=== PATIENT | male | born 1955 | race African-American/Black ===

== ENCOUNTER 2017-06-27 17:30 | Inpatient (IN) | payer OTHER ==
[~2017-06-27] VITALS: Ht 188 cm; Wt 97.0 kg
[2017-06-27 17:32] VITALS: Ht 188 cm; Wt 97.0 kg
[2017-06-27] MEDS ORDERED: ACETAMINOPHEN 325 MG TAB PO PRN (18:00)
[2017-06-27] MEDS ORDERED: ONDANSETRON 4 MG INJ IV PRN ×2 (18:00→20:00)
--- NOTE | 2017-06-27 18:00 | QN ---
Documentation Comment This is a 61-year-old male history of coronary disease status post stents who presents as a transfer from [place]. The patient was evaluated and treated and stabilized in the emergency room. They are being transferred to our emergency room because we do not have any telemetry beds and the patient is capitated. He has no chest pain currently. Hospitalist team is aware. Physical exam General: Well developed, well nourished, no acute distress Head: Normocephalic, atraumatic Eyes: Pupils equally reactive, EOM intact ENT: Moist mucous membranes Neck: Supple, no lymphadenopathy Respiratory: Lungs clear bilaterally, no distress Cardiovascular: RRR, no murmurs, rubs, or gallops Abdominal: Soft, non-tender, non-distended, no peritoneal signs : Deferred MSK: No edema, no unilateral swelling, 5/5 strength Neurologic: Alert and oriented, moving all extremities, normal speech, no focal weakness, no cerebellar signs Skin: No rash Psych: Normal mood EKG: I reviewed and interpreted a 12-lead EKG. Rhythm: Normal sinus rhythm Ectopy: None Intervals: No abnormalities ST segments: No elevations or depressions T waves: No contiguous inversions The patient remains chest pain-free. Further management per inpatient hospitalist team. The patient will be boarded in the emergency room until there is a telemetry bed. Bridge orders placed. Accepting care team and consultations: I discussed the current laboratory data, diagnostic imaging and emergency care provided. Admitting team: Dr. Alexander Admitting team indication: Insurance directed RAYNE LAM MD Jun 27, 2017 18:00
[2017-06-27 19:57] VITALS: BP 144/93; RESP 20
[2017-06-27] MEDS ORDERED: NACL 0.9% 3 ML SYG IV SCH (20:00)
[2017-06-27] MEDS ORDERED: NITROGLYCERIN (SL) 0.4 MG TAB SL PRN (20:00)
[2017-06-27] MEDS ORDERED: DOCUSATE SODIUM 100 MG CAP PO PRN (20:00)
[2017-06-27] MEDS ORDERED: BISACODYL (EC) 5 MG TAB PO PRN (20:00)
[2017-06-27] MEDS ORDERED: ASPI81TA3 PO (20:05)
[2017-06-27] MEDS ORDERED: CLOP75TA27 PO (20:05)
[2017-06-27 20:21] VITALS: PULSE 64
[2017-06-27] MEDS ORDERED: TRAM50TA2 PO (20:21)
[2017-06-27] MEDS ORDERED: DET1 PO (20:21)
[2017-06-27] MEDS ORDERED: ATOR10TA65 PO (20:21)
[2017-06-27] MEDS ORDERED: RANI75TA PO (20:21)
[2017-06-27] MEDS ORDERED: BENA5TAB2 PO (20:21)
[2017-06-27] MEDS ORDERED: METO-448 PO (20:21)
[2017-06-27] MEDS ORDERED: SERT20OR PO (20:21)
[2017-06-27] MEDS ORDERED: NAPR275T83 PO (20:21)
[2017-06-27 20:41] LABS: CREATINE KINASE 149 IU/L (23-200)
[2017-06-27] MEDS: FAMOTIDINE 20 MG TAB PO SCH (21:31)
[2017-06-27 22:53] LABS: CK-MB 1.25 ng/ml (0.0-2.4); TROPONIN-I < 0.012 ng/ml (0.00-0.12)
[2017-06-27 23:58] VITALS: BP 122/76; RESP 20
[2017-06-28] VITALS (11 sets, daily range): BP systolic 120–143; BP diastolic 81–89; PULSE 50–72; RESP 19–20
[2017-06-28 01:47] LABS: CREATINE KINASE 136 IU/L (23-200)
[2017-06-28 01:59] LABS: CK-MB 1.24 ng/ml (0.0-2.4); TROPONIN-I < 0.012 ng/ml (0.00-0.12)
--- NOTE | 2017-06-28 03:04 | HP ---
Date/Time of Note Date/Time of Note DATE: 06/28/17 TIME: 02:50 Assessment/Plan VTE Prophylaxis VTE Prophylaxis Intervention: SCD's Lines/Catheters Urinary Cath still in place: No Assessment/Plan Chief Complaint/Hosp Course This is a 61-year-old male being admitted to the telemetry floor for: #1 chest pain: Rule out ACS. Patient has cardiac risk factors as well as previous history of MA status post stent placement. At the current time he is chest pain-free. We will trend troponins. We will check a 2D echocardiogram. Will consult cardiology. Again as mentioned in the HPI patient was apparently going to be scheduled for a cardiac cath in the near future as he had some abnormal stress test in the recent past. Chest x-ray in a.m. #2 coronary artery disease: Patient is status post cardiac stents 2. Will continue aspirin Plavix statin and OLGA. Patient does not recall the dosage for all his medications put him on a low-dose beta-melony and OLGA and high intensity statin. Further medication recommendations as per cardiology. #3 hypertension: On OLGA, titrate up as indicated #4 hyperlipidemia: High-intensity statin #5 DVT and GI prophylaxis: SCDs, acid melony Further treatment strategy will be implemented as per the clinical course Problems: HPI/ROS Admit Date/Time Admit Date/Time Jun 27, 2017 at 17:44 Hx of Present Illness Chief complaint: Left-sided chest pain This is a 61-year-old male history of coronary disease status post stents who presents as a transfer from [place]. She reports that recently he was in an argument with somebody soon after the argument he started experiencing left- sided chest pressure along with shortness of breath and diaphoresis. He denies any radiation of this pain. He describes it as a pressure sensation over his chest. He states that he felt very similar to the pain that he experienced when he had a heart attack in 2015. Currently patient is chest pain-free by my examination. Of note patient does state that he follows with a education sales consultant as an outpatient and he was awaiting to be scheduled for a cardiac catheterization as he had some abnormal stress test within the last few weeks. Allergies: NKDA Indications: See JULIA RODRIGUEZ Const: As per HPI Eyes : No pain discharge or redness or change in visual acuity ENT: No pain, sore throat, congestion, congestion, dysphagia or discharge Respiratory: No shortness of breath, cough, sputum, wheezing, or pleuritic pain Cardiovascular: As per HPI GI : no change in appetite, abdominal pain, nausea, vomiting, diarrhea, constipation, or change in the color his stool Genitourinary: No dysuria, hematuria, flank pain , discharge or CVA tenderness Musculoskeletal: No joint pain, back pain, neck pain, restricted range of motion in neck or joints Skin: No rash, bruising or hives Neuro: No headache, dizziness, syncope, seizure, focal weakness Endocrine: No polyuria, polydipsia, temperature intolerance Psych: No hallucination, depression, anxiety or suicidal ideation PMH/Family/Social Past Medical History MA in 2015, hypertension, hyperlipidemia Past Surgical History Cardiac stents 2 Family History Significant Family History: diabetes (Dad) Social History Alcohol Use: none Smoking Status: Never smoker Drug Use: other (Previous history of cocaine use approximately 3 years ago.) Exam/Review of Systems Vital Signs Vitals Vital Signs Date Time Temp Pulse Resp B/P Pulse Ox O2 Delivery O2 Flow Rate FiO2 06/28/17 00:11 50 06/27/17 23:58 98.7 20 122/76 97 06/27/17 19:13 Room Air Exam Exam General: Patient lying in bed in no acute distress, prior to me entering the room patient was sound asleep. HEENT: Atraumatic, normocephalic. The pupils are equal, round and reactive. Extraocular motor are intact Neck: Supple with full range of motion. No rigidity or meningismus Chest: Nontender Lungs: Clear to auscultation bilaterally no crackles rales or wheezing Heart: Normal S1-S2, Regular rhythm and rate. No acute murmurs appreciate Abdomen: Soft , nontender, nondistended , bowel sounds are present. No guarding no rebound tenderness , No masses or organomegaly. No costovertebral temporal angle mass Extremities: Normal to inspection, no edema no cyanosis Neurologic: Normal mental status, speech normal, cranial nerves II through XII are intact, motor and sensory are intact, no focal weakness Additional Comments EKG: Rhythm: Normal sinus rhythm Ectopy: None Intervals: No abnormalities ST segments: No elevations or depressions T waves: No contiguous inversions As per ED physician documented Medications Medications Current Medications Clopidogrel Bisulfate (plaVIX) 75 mg DAILY PO ; Start 06/28/17 at 09:00 Aspirin (Aspirin) 81 mg DAILY PO ; Start 06/28/17 at 09:00 Ondansetron HCl (Zofran Inj) 4 mg Q6H PRN IV NAUSEA AND/OR VOMITING; Start at 20:00 Nitroglycerin (Nitroglycerin (Sl Tab) 0.4 Mg) 1 tab Q5M PRN SL CHEST PAIN; Start 06/27/17 at 20:00 Acetaminophen (Tylenol Tab) 650 mg Q6H PRN PO PAIN LEVEL 1-3 OR FEVER; Start at 20:00 Morphine Sulfate (morphine) 2 mg Q4H PRN IV PAIN LEVEL 7-10; Start 06/27/17 at 20:00 Docusate Sodium (Colace) 100 mg Q12H PRN PO CONSTIPATION; Start 06/27/17 at 20: 00 Bisacodyl (Dulcolax) 5 mg DAILY PRN PO CONSTIPATION; Start 06/27/17 at 20:00 Famotidine (Pepcid) 20 mg Q12 PO Last administered on 06/27/17t 21:31; Admin Dose 20 MG; Start 06/27/17 at 21:00 NARINDER LOOMIS Jun 28, 2017 03:00
[2017-06-28 08:01] LABS: BASOPHILS % 0.4 % (0.0-2.0); EOSINOPHILS # 0.1 10^3/ul (0.0-0.5); EOSINOPHILS % 1.1 % (0.0-7.0); HEMATOCRIT 43.7 % (42.0-52.0); HEMOGLOBIN 14.3 g/dl (14.0-18.0); LYMPHOCYTES # 1.4 10^3/ul (0.8-2.9); LYMPHOCYTES % 25.9 % (15.0-51.0); MEAN CORPUSCULAR HEMOGLOBIN 26.1 pg (29.0-33.0); MEAN CORPUSCULAR HGB CONC 32.7 g/dl (32.0-37.0); MEAN CORPUSCULAR VOLUME 79.7 fl (82.0-101.0); MEAN PLATELET VOLUME 10.3 fl (7.4-10.4); MONOCYTE # 0.5 10^3/ul (0.3-0.9); MONOCYTES % 9.2 % (0.0-11.0); NEUTROPHIL # 3.5 10^3/ul (1.6-7.5); PLATELET COUNT 195 10^3/UL (140-415); RED BLOOD COUNT 5.48 10^6/ul (4.70-6.10); RED CELL DISTRIBUTION WIDTH 13.9 % (11.5-14.5); WHITE BLOOD COUNT 5.5 10^3/ul (4.8-10.8)
[2017-06-28 08:25] LABS: ALBUMIN 3.9 g/dl (3.3-4.9); ALBUMIN/GLOBULIN RATIO 1.34; BILIRUBIN,INDIRECT 0.5 mg/dl (0-1.1); BILIRUBIN,TOTAL 0.5 mg/dl (0.2-1.3); CALCIUM 9.1 mg/dl (8.4-10.2); CHOL/HDL RATIO 3.1 RATIO; CREATININE 0.83 mg/dl (0.61-1.24); MAGNESIUM 1.9 mg/dl (1.7-2.5); TOTAL PROTEIN 6.8 g/dl (6.1-8.1)
[2017-06-28] MEDS: METOPROLOL 25 MG TAB PO SCH (08:50)
[2017-06-28] MEDS: CLOPIDOGREL 75 MG TAB PO SCH (08:53)
[2017-06-28] MEDS: BENAZEPRIL 10 MG TAB PO SCH (08:53)
[2017-06-28] MEDS: ATORVASTATIN 10 MG TAB PO SCH (08:54)
[2017-06-28] MEDS: ASPIRIN 81 MG TAB PO SCH (08:54)
[2017-06-28] MEDS: FAMOTIDINE 20 MG TAB PO SCH ×2 (08:54→20:15)
[2017-06-28] MEDS ORDERED: CLOPIDOGREL 75 MG TAB PO SCH (09:00)
[2017-06-28] MEDS ORDERED: ASPIRIN 81 MG TAB PO SCH (09:00)
[2017-06-28 15:15] LABS: THYROID STIMULATING HORMONE 1.54 MIU/L (0.465-4.680)
--- NOTE | 2017-06-28 15:24 | CONS ---
Date/Time of Note Date/Time of Note DATE: 06/28/17 TIME: 15:20 Assessment/Plan Assessment/Plan Additional Assessment/Plan #1 chest pain: Rule out ACS - pt with report of + stress test in DR. Landrum 's office - plan for [facility] with Dr. Padilla, possibly tomorrow. ay in a.m. #2 coronary artery disease: Patient is status post cardiac stents 2. Will continue aspirin Plavix statin and OLGA. LHC planned. #3 hypertension: On OLGA, titrate up as indicated #4 hyperlipidemia: High-intensity statin #5 DVT and GI prophylaxis: SCDs, acid melony Consultation Date/Type/Reason Admit Date/Time Jun 27, 2017 at 17:44 Initial Consult Date 24 HR Interval Summary Free Text/Dictation pt with report of + stress test in DR. Landrum's office - plan for [facility] with Dr. Padilla, possibly tomorrow. ay in a.m. ROS: No fever, no chills, no nausea, no vomiting, no diarrhea/constipation No recent weight changes No chest pain, no PND, no orthopnea No dizziness, blurred vision No thirst, no heat or cold intolerance Exam/Review of Systems Vital Signs Vitals Vital Signs Date Time Temp Pulse Resp B/P Pulse Ox O2 Delivery O2 Flow Rate FiO2 06/28/17 12:10 61 06/28/17 11:47 98.3 19 143/82 98 06/27/17 19:13 Room Air Intake and Output 06/27/17 06/27/17 06/28/17 15:00 23:00 07:00 Intake Total 300 ml Output Total 200 ml Balance 100 ml Exam General: WN/WD/NAD, AOx 3 HEENT: Unicetric/atraumatic/EOMI (follow commands) NECK: JVD elevated, no thyromegaly Lymph: no lymphadenopathy HEART: regular with no S3, II/ systolic murmur at apex LUNGS: Coarse sounds ABD: soft, NT, ND, +BS : Intact Neuro: non focal SKIN: chronic changes EXT: trace edema Results Result Diagram: 06/28/17 0701 06/28/17 0702 Results 24 hrs Laboratory Tests Test 06/27/17 20:00 06/28/17 01:08 06/28/17 07:01 06/28/17 07:02 Creatine Kinase 149 136 Creatine Kinase Index 0.8 0.9 Creatinine Kinase MB (Mass) 1.25 1.24 Troponin I < 0.012 < 0.012 White Blood Count 5.5 Red Blood Count 5.48 Hemoglobin 14.3 Hematocrit 43.7 Mean Corpuscular Volume 79.7 L Mean Corpuscular Hemoglobin 26.1 L Mean Corpuscular Hemoglobin Concent 32.7 Red Cell Distribution Width 13.9 Platelet Count 195 Mean Platelet Volume 10.3 Neutrophils % 63.0 Lymphocytes % 25.9 Monocytes % 9.2 Eosinophils % 1.1 Basophils % 0.4 Nucleated Red Blood Cells % 0.0 Neutrophils # 3.5 Lymphocytes # 1.4 Monocytes # 0.5 Eosinophils # 0.1 Basophils # 0.0 Nucleated Red Blood Cells # 0.0 Hemoglobin A1c 5.9 Sodium Level 139 Potassium Level 4.0 Chloride Level 106 Carbon Dioxide Level 26 Anion Gap 11 Blood Urea Nitrogen 11 Creatinine 0.83 Glucose Level 86 Calcium Level 9.1 Magnesium Level 1.9 Total Bilirubin 0.5 Direct Bilirubin 0.00 Indirect Bilirubin 0.5 Aspartate Amino Transf (AST/SGOT) 23 Alanine Aminotransferase (ALT/SGPT) 34 Alkaline Phosphatase 78 Total Protein 6.8 Albumin 3.9 Globulin 2.90 Albumin/Globulin Ratio 1.34 Triglycerides Level 63 Cholesterol Level 92 L LDL Cholesterol, Calculated 50 HDL Cholesterol 29 L Cholesterol/HDL Ratio 3.1 Thyroid Stimulating Hormone (TSH) 1.540 Medications Medications Current Medications Clopidogrel Bisulfate (plaVIX) 75 mg DAILY PO Last administered on 06/28/17 08 :53; Admin Dose 75 MG; Start 06/28/17 at 09:00 Aspirin (Aspirin) 81 mg DAILY PO Last administered on 06/28/17 08:54; Admin Dose 81 MG; Start 06/28/17 at 09:00 Ondansetron HCl (Zofran Inj) 4 mg Q6H PRN IV NAUSEA AND/OR VOMITING; Start at 20:00 Nitroglycerin (Nitroglycerin (Sl Tab) 0.4 Mg) 1 tab Q5M PRN SL CHEST PAIN; Start 06/27/17 at 20:00 Acetaminophen (Tylenol Tab) 650 mg Q6H PRN PO PAIN LEVEL 1-3 OR FEVER; Start at 20:00 Morphine Sulfate (morphine) 2 mg Q4H PRN IV PAIN LEVEL 7-10; Start 06/27/17 at 20:00 Docusate Sodium (Colace) 100 mg Q12H PRN PO CONSTIPATION; Start 06/27/17 at 20: 00 Bisacodyl (Dulcolax) 5 mg DAILY PRN PO CONSTIPATION; Start 06/27/17 at 20:00 Famotidine (Pepcid) 20 mg Q12 PO Last administered on 06/28/17 08:54; Admin Dose 20 MG; Start 06/27/17 at 21:00 Atorvastatin Calcium (Lipitor) 80 mg DAILY PO Last administered on 06/28/17 08 :54; Admin Dose 80 MG; Start 06/28/17 at 09:00 Benazepril HCl (Lotensin) 10 mg DAILY PO Last administered on 06/28/17 08:53; Admin Dose 10 MG; Start 06/28/17 at 09:00 Metoprolol Tartrate (Lopressor) 25 mg DAILY PO ; Start 06/28/17 at 09:00 TAMAR GUZMÁN MD Jun 28, 2017 15:24
--- NOTE | 2017-06-28 15:43 | RADRPT ---
Echocardiogram Report Patient Name: SANDY ECHAVARRIA Gender: Male Date: 1955 Study Date: 28-Jun-2017 Busperson: [place] Location: I Ref. Physician: NARINDER LOOMIS Quality: Good Procedures: Transthoracic echocardiogram with complete 2D, M-Mode, and doppler examination. Indications: Evaluate Left Ventricular function. 2D/M Mode Doppler Measurement Value Normal Ranges Measurement Value Normal Ranges LVIDd 2D 3.1 3.5 - 5.6 cm AV Peak [place] 1.2 m/sec LVIDs 2D 2.1 2.1 - 4.1 cm AV Peak PG 5.5 mmHg LVPWd 2D 1.3 0.6 - 1.1 cm LVOT Peak [place] 1.2 m/sec IVSd 2D 1.3 0.6 - 1.1 cm LVOT Peak PG 5.4 mmHg AoR Diam 2D 3.8 2.0 - 3.7 cm MV E Peak [place] 0.8 m/sec EDV 2D 38.0 cm3 MV A Peak [place] 0.9 m/sec ESV 2D 9.0 cm3 MV E/A 0.9 LA Dimen 2D 3.4 2.3 - 4.0 cm MV Decel Time 253 msec MV Decel [place] 3 MV E/A 0.9 TR Peak [place] 2.4 m/sec TR Peak PG 22.4 mmHg RVSP 25.4 mmHg Findings Left Ventricle: Mild concentric left ventricular hypertrophy. Ejection fraction is visually estimated at 50 %. Tissue Doppler/Mitral Doppler indices are consistent with impaired relaxation (Stage I diastolic dysfunction). Right Ventricle: Normal right ventricular size. Normal right ventricular systolic function. Left Atrium: The left atrium is normal in size. Right Atrium: The right atrium is normal in size. Mitral Valve: Normal appearance and function of the mitral valve with trace physiologic regurgitation. Aortic Valve: Normal appearance of the aortic valve. No significant aortic stenosis or insufficiency. Tricuspid Valve: Normal appearance and function of the tricuspid valve with trace physiologic regurgitation. Normal right ventricular systolic pressure. Pulmonic Valve: Normal pulmonic valve appearance. Pericardium: Normal pericardium with no significant pericardial effusion. Aorta: Normal aortic root. IVC: Normal size and normal respiratory collapse consistent with normal right atrial pressure. Pulmonary Artery: Not well visualized. Conclusions 1.Mild concentric left ventricular hypertrophy. Ejection fraction is visually estimated at 50 %. Tissue Doppler/Mitral Doppler indices are consistent with impaired relaxation (Stage I diastolic dysfunction). 2.Normal appearance and function of the mitral valve with trace physiologic regurgitation. 3.Normal appearance and function of the tricuspid valve with trace physiologic regurgitation. Normal right ventricular systolic pressure. Electronically Signed By: Bryce Estevez 28-Jun-2017 15:42:32 -0700 Patient Name: SANDY ECHAVARRIA Study Date: 28-Jun-2017 [id number]
--- NOTE | 2017-06-28 16:13 | PN ---
Date/Time of Note Date/Time of Note DATE: 06/28/17 TIME: 16:11 Assessment/Plan VTE Prophylaxis VTE Prophylaxis Intervention: SCD's Lines/Catheters Urinary Cath still in place: No Assessment/Plan Chief Complaint/Hosp Course Assessment and plan 1. Chest pain. So troponins negative. Per echocardiogram patient noted with EF of 50% with stage I diastolic dysfunction. Considering patient's history tentative plan for left heart cath per support services specialist. 3. History of CAD. Continue on aspirin and statin as well as OLGA inhibitor and beta-melony. Continue telemetry monitoring. 3. History of hypertension. Continue antihypertensives and adjust needed 4. Dyslipidemia. Continue on statin medication Disposition and plan: Tentative plan for left heart cath. Will follow up with support services specialist. Continue in-house monitoring. Discussed plan of care with Dr. Hollingsworth Problems: Subjective 24 Hr Interval Summary Free Text/Dictation Patient denies any chest pain at this time. No reports of shortness of breath either. Exam/Review of Systems Vital Signs Vitals Vital Signs Date Time Temp Pulse Resp B/P Pulse Ox O2 Delivery O2 Flow Rate FiO2 06/28/17 15:39 98.3 65 19 123/81 99 06/27/17 19:13 Room Air Intake and Output 06/27/17 06/27/17 06/28/17 14:59 22:59 06:59 Intake Total 300 ml Output Total 200 ml Balance 100 ml Exam Constitutional: alert, oriented Psych: nl mood/affect Head: normocephalic Eyes: nl conjunctiva Neck: supple, No jvd Respiratory: normal air movement Cardiovascular: other (Rate controlled at this time) Gastrointestinal: non-tender, soft Musculoskeletal: nl extremities to inspection Neurological: AIR VICE MARSHAL II-XII intact, nl mental status, nl speech Skin: nl turgor Results Result Diagram: 06/28/17 0701 06/28/17 0702 Results 24 hrs Laboratory Tests Test 06/27/17 20:00 06/28/17 01:08 06/28/17 07:01 06/28/17 07:02 Creatine Kinase 149 136 Creatine Kinase Index 0.8 0.9 Creatinine Kinase MB (Mass) 1.25 1.24 Troponin I < 0.012 < 0.012 White Blood Count 5.5 Red Blood Count 5.48 Hemoglobin 14.3 Hematocrit 43.7 Mean Corpuscular Volume 79.7 L Mean Corpuscular Hemoglobin 26.1 L Mean Corpuscular Hemoglobin Concent 32.7 Red Cell Distribution Width 13.9 Platelet Count 195 Mean Platelet Volume 10.3 Neutrophils % 63.0 Lymphocytes % 25.9 Monocytes % 9.2 Eosinophils % 1.1 Basophils % 0.4 Nucleated Red Blood Cells % 0.0 Neutrophils # 3.5 Lymphocytes # 1.4 Monocytes # 0.5 Eosinophils # 0.1 Basophils # 0.0 Nucleated Red Blood Cells # 0.0 Hemoglobin A1c 5.9 Sodium Level 139 Potassium Level 4.0 Chloride Level 106 Carbon Dioxide Level 26 Anion Gap 11 Blood Urea Nitrogen 11 Creatinine 0.83 Glucose Level 86 Calcium Level 9.1 Magnesium Level 1.9 Total Bilirubin 0.5 Direct Bilirubin 0.00 Indirect Bilirubin 0.5 Aspartate Amino Transf (AST/SGOT) 23 Alanine Aminotransferase (ALT/SGPT) 34 Alkaline Phosphatase 78 Total Protein 6.8 Albumin 3.9 Globulin 2.90 Albumin/Globulin Ratio 1.34 Triglycerides Level 63 Cholesterol Level 92 L LDL Cholesterol, Calculated 50 HDL Cholesterol 29 L Cholesterol/HDL Ratio 3.1 Thyroid Stimulating Hormone (TSH) 1.540 Medications Medications Current Medications Clopidogrel Bisulfate (plaVIX) 75 mg DAILY PO Last administered on 06/28/17 08 :53; Admin Dose 75 MG; Start 06/28/17 at 09:00 Aspirin (Aspirin) 81 mg DAILY PO Last administered on 06/28/17 08:54; Admin Dose 81 MG; Start 06/28/17 at 09:00 Ondansetron HCl (Zofran Inj) 4 mg Q6H PRN IV NAUSEA AND/OR VOMITING; Start at 20:00 Nitroglycerin (Nitroglycerin (Sl Tab) 0.4 Mg) 1 tab Q5M PRN SL CHEST PAIN; Start 06/27/17 at 20:00 Acetaminophen (Tylenol Tab) 650 mg Q6H PRN PO PAIN LEVEL 1-3 OR FEVER; Start at 20:00 Morphine Sulfate (morphine) 2 mg Q4H PRN IV PAIN LEVEL 7-10; Start 06/27/17 at 20:00 Docusate Sodium (Colace) 100 mg Q12H PRN PO CONSTIPATION; Start 06/27/17 at 20: 00 Bisacodyl (Dulcolax) 5 mg DAILY PRN PO CONSTIPATION; Start 06/27/17 at 20:00 Famotidine (Pepcid) 20 mg Q12 PO Last administered on 06/28/17 08:54; Admin Dose 20 MG; Start 06/27/17 at 21:00 Atorvastatin Calcium (Lipitor) 80 mg DAILY PO Last administered on 06/28/17 08 :54; Admin Dose 80 MG; Start 06/28/17 at 09:00 Benazepril HCl (Lotensin) 10 mg DAILY PO Last administered on 06/28/17 08:53; Admin Dose 10 MG; Start 06/28/17 at 09:00 Metoprolol Tartrate (Lopressor) 25 mg DAILY PO ; Start 06/28/17 at 09:00 ARACELI ODOM Jun 28, 2017 16:13
[2017-06-28] MEDS: morphine 2 MG INJ IV PRN (18:33)
[2017-06-28] MEDS: ISOSORBIDE DINITRATE 5 MG TAB PO SCH (20:15)
[2017-06-28] MEDS: ACETAMINOPHEN 325 MG TAB PO PRN (21:28)
[2017-06-29] VITALS (20 sets, daily range): BP systolic 111–163; BP diastolic 58–98; PULSE 62–96; RESP 14–24
--- NOTE | 2017-06-29 05:12 | CONS ---
DATE OF ADMISSION: 06/27/2017 DATE OF CONSULTATION: 06/28/2017 REFERRING PHYSICIAN: Bryce Estevez MD. INTERVENTION: Cardiology consultation. REASON FOR CONSULT: Abnormal chest pain. Need for angiogram. CHIEF COMPLAINT: Chest pain. HISTORY OF PRESENT ILLNESS: This is a 59-year-old gentleman who presented to the emergency room complaining of chest pain. The patient said that he was in an argument, started having chest pain, left-sided pressure, severe. The patient was seen initially at [facility] and was transferred to [facility]. The patient has a history of coronary artery disease, acute IA and PCI done in 2014 at [facility] by . He has had 2 stents. He was also followed by Dr. Kiko Landrum, his geometry professor. According to the patient, the patient has had a stress test done as an outpatient that showed no abnormalities seen, and he was supposed to get angiogram done. However, he has not been able to arranged this. Currently, the patient had chest pain as previously mentioned. PAST MEDICAL HISTORY: Coronary artery disease status post STEMI in 2015, hypertension, dyslipidemia. SOCIAL HISTORY: The patient has apparently used cocaine and alcohol in the past. FAMILY HISTORY: None reported. ALLERGIES: NONE REPORTED. MEDICATIONS: See medical reconciliation and reviewed. REVIEW OF SYSTEMS: As above mentioned. PHYSICAL EXAMINATION: VITAL SIGNS: Temperature 98, heart rate 72, blood pressure 120/81, respiratory rate 19, sating 99%. HEENT: Normocephalic and atraumatic. Pupils were equal. CARDIOVASCULAR: Regular rate and rhythm. S1, S2. PULMONARY: No wheezes. GI: Soft and nontender. EXTREMITIES: No edema. NEURO: Awake and alert. PSYCH: Calm and pleasant. DIAGNOSTICS: EKG done and showed normal S1, S2. No evidence of ischemia. EKG done in June showed normal sinus rhythm. No evidence of ischemia. ASSESSMENT: 1. Chest pain, unremarkable. 2. Coronary artery disease. Abnormal stress test per patient's report. This was done in Dr. Landrum's office. 3. Dyslipidemia. RECOMMENDATIONS: The patient's labs were reviewed. His echo was also read by Dr. Estevez shows ejection fraction about 50%. He has already on medical regimen, including aspirin and Plavix, beta melony. Nothing was added. Given his abnormal stress test and past history of coronary artery disease and the current chest pain, he was going to have a left heart catheterization and angioplasty with coronary intervention. This plan was discussed with the patient. The patient has given consent to the procedure. I scheduled the patient for the procedure tomorrow. Dictated By: Hao Navarrete MD /[place]/desiree /Document#: [id number] CC: Joyce Aleman MD; Bryce Estevez MD;*[facility]*
--- NOTE | 2017-06-29 05:20 | RADRPT ---
PROCEDURE: XR Chest. CLINICAL INDICATION: Chest pain TECHNIQUE: An AP view of the chest was obtained. COMPARISON: None. FINDINGS: There is prominence of the interstitial markings with small left pleural effusion. No focal airsp petar opacification or pneumothorax is seen. The cardiomediastinal silhouette is mildly enlarged . C alcifications are seen within the aortic arch. The osseous structures demonstrate senescent changes . There are multiple healed right posterior rib fractures. IMPRESSION: 1. Mild prominence of the interstitial markings, may reflect mild underlying interstitial edema or chronic lung changes. 2. Small left pleural effusion. 3. Mild cardiomegaly and aortic atherosclerosis. RPTAT: HH .Liliane James MD, MD Date Time Electronically viewed and signed by .Liliane James MD, on 06/29/2017 05:20 .G/
[2017-06-29 08:04] LABS: BASOPHILS % 0.5 % (0.0-2.0); EOSINOPHILS # 0.1 10^3/ul (0.0-0.5); EOSINOPHILS % 1.3 % (0.0-7.0); HEMATOCRIT 45.5 % (42.0-52.0); HEMOGLOBIN 14.9 g/dl (14.0-18.0); LYMPHOCYTES # 1.6 10^3/ul (0.8-2.9); LYMPHOCYTES % 28.6 % (15.0-51.0); MEAN CORPUSCULAR HEMOGLOBIN 26.2 pg (29.0-33.0); MEAN CORPUSCULAR HGB CONC 32.7 g/dl (32.0-37.0); MEAN CORPUSCULAR VOLUME 80.1 fl (82.0-101.0); MEAN PLATELET VOLUME 10.1 fl (7.4-10.4); MONOCYTE # 0.5 10^3/ul (0.3-0.9); MONOCYTES % 8.3 % (0.0-11.0); NEUTROPHILS % 61.1 % (39.0-77.0); PLATELET COUNT 209 10^3/UL (140-415); RED BLOOD COUNT 5.68 10^6/ul (4.70-6.10); RED CELL DISTRIBUTION WIDTH 13.7 % (11.5-14.5); WHITE BLOOD COUNT 5.6 10^3/ul (4.8-10.8)
[2017-06-29 08:27] LABS: INR 1.06; PROTIME 13.8 Sec (12.2-14.2); PT RATIO 1.1
[2017-06-29 08:28] LABS: CREATINE KINASE 101 IU/L (23-200)
[2017-06-29 08:41] LABS: ALBUMIN 3.8 g/dl (3.3-4.9); ALBUMIN/GLOBULIN RATIO 1.31; BILIRUBIN,INDIRECT 0.3 mg/dl (0-1.1); BILIRUBIN,TOTAL 0.3 mg/dl (0.2-1.3); CALCIUM 9.5 mg/dl (8.4-10.2); CK-MB 0.87 ng/ml (0.0-2.4); CREATININE 0.81 mg/dl (0.61-1.24); POTASSIUM 4.5 mmol/L (3.5-5.1); TOTAL PROTEIN 6.7 g/dl (6.1-8.1); TROPONIN-I < 0.012 ng/ml (0.00-0.12)
[2017-06-29] MEDS: FAMOTIDINE 20 MG TAB PO SCH ×2 (08:43→21:00)
[2017-06-29] MEDS: ATORVASTATIN 10 MG TAB PO SCH (08:43)
[2017-06-29] MEDS: BENAZEPRIL 10 MG TAB PO SCH (08:43)
[2017-06-29] MEDS: ISOSORBIDE DINITRATE 5 MG TAB PO SCH ×3 (08:43→17:00)
[2017-06-29] MEDS: METOPROLOL 25 MG TAB PO SCH (08:43)
[2017-06-29] MEDS: ASPIRIN 81 MG TAB PO SCH (08:45)
[2017-06-29] MEDS: CLOPIDOGREL 75 MG TAB PO SCH (08:45)
--- NOTE | 2017-06-29 10:30 | CONS ---
Date/Time of Note Date/Time of Note DATE: 06/29/17 TIME: 10:29 Assessment/Plan Assessment/Plan Additional Assessment/Plan #1 chest pain: Rule out ACS - pt with report of + stress test in DR. Landrum 's office - plan for [facility] with Dr. Padilla - pt agrees - than you for Dr. Padilla' s assistance. #2 coronary artery disease: Patient is status post cardiac stents 2. Will continue aspirin Plavix statin and OLGA. C planned. NO CP now. #3 hypertension: On OLGA, titrate up as indicated #4 hyperlipidemia: High-intensity statin #5 DVT and GI prophylaxis: SCDs, acid melony Consultation Date/Type/Reason Admit Date/Time Jun 27, 2017 at 17:44 24 HR Interval Summary Free Text/Dictation [facility] planned today. ROS: No fever, no chills, no nausea, no vomiting, no diarrhea/constipation No recent weight changes No chest pain, no PND, no orthopnea No dizziness, blurred vision No thirst, no heat or cold intolerance Exam/Review of Systems Vital Signs Vitals Vital Signs Date Time Temp Pulse Resp B/P Pulse Ox O2 Delivery O2 Flow Rate FiO2 06/29/17 08:17 62 06/29/17 08:08 97.9 18 121/80 98 06/27/17 19:13 Room Air Intake and Output 06/28/17 06/28/17 06/29/17 15:00 23:00 07:00 Intake Total 800 ml 500 ml Output Total 1050 ml Balance 800 ml -550 ml Exam General: WN/WD/NAD, AOx 3 HEENT: Unicetric/atraumatic/EOMI (follows commands) NECK: JVD elevated, no thyromegaly Lymph: no lymphadenopathy HEART: regular with no S3, II/ systolic murmur at apex LUNGS: Coarse sounds ABD: soft, NT, ND, +BS : Intact Neuro: non focal SKIN: chronic changes EXT: trace edema Results Result Diagram: 06/29/17 0647 06/29/17 0647 Results 24 hrs Laboratory Tests Test 06/29/17 06:47 White Blood Count 5.6 Red Blood Count 5.68 Hemoglobin 14.9 Hematocrit 45.5 Mean Corpuscular Volume 80.1 L Mean Corpuscular Hemoglobin 26.2 L Mean Corpuscular Hemoglobin Concent 32.7 Red Cell Distribution Width 13.7 Platelet Count 209 Mean Platelet Volume 10.1 Neutrophils % 61.1 Lymphocytes % 28.6 Monocytes % 8.3 Eosinophils % 1.3 Basophils % 0.5 Nucleated Red Blood Cells % 0.0 Neutrophils # (Manual) 3.4 Lymphocytes # 1.6 Monocytes # 0.5 Eosinophils # 0.1 Basophils # 0.0 Nucleated Red Blood Cells # 0.0 Prothrombin Time 13.8 Prothrombin Time Ratio 1.1 INR International Normalized Ratio 1.06 Sodium Level 143 Potassium Level 4.5 Chloride Level 104 Carbon Dioxide Level 25 Anion Gap 19 #H Blood Urea Nitrogen 14 Creatinine 0.81 Glucose Level 87 Calcium Level 9.5 Magnesium Level 2.0 Total Bilirubin 0.3 Direct Bilirubin 0.00 Indirect Bilirubin 0.3 Aspartate Amino Transf (AST/SGOT) 22 Alanine Aminotransferase (ALT/SGPT) 30 Alkaline Phosphatase 77 Creatine Kinase 101 Creatine Kinase Index 0.9 Creatinine Kinase MB (Mass) 0.87 Troponin I < 0.012 Total Protein 6.7 Albumin 3.8 Globulin 2.90 Albumin/Globulin Ratio 1.31 Medications Medications Current Medications Clopidogrel Bisulfate (plaVIX) 75 mg DAILY PO Last administered on 06/29/17 08 :45; Admin Dose 75 MG; Start 06/28/17 at 09:00 Aspirin (Aspirin) 81 mg DAILY PO Last administered on 06/29/17 08:45; Admin Dose 81 MG; Start 06/28/17 at 09:00 Ondansetron HCl (Zofran Inj) 4 mg Q6H PRN IV NAUSEA AND/OR VOMITING; Start at 20:00 Nitroglycerin (Nitroglycerin (Sl Tab) 0.4 Mg) 1 tab Q5M PRN SL CHEST PAIN; Start 06/27/17 at 20:00 Acetaminophen (Tylenol Tab) 650 mg Q6H PRN PO PAIN LEVEL 1-3 OR FEVER Last administered on 06/28/17 21:28; Admin Dose 650 MG; Start 06/27/17 at 20:00 Morphine Sulfate (morphine) 2 mg Q4H PRN IV PAIN LEVEL 7-10 Last administered on 06/28/17 18:33; Admin Dose 2 MG; Start 06/27/17 at 20:00 Docusate Sodium (Colace) 100 mg Q12H PRN PO CONSTIPATION; Start 06/27/17 at 20: 00 Bisacodyl (Dulcolax) 5 mg DAILY PRN PO CONSTIPATION; Start 06/27/17 at 20:00 Famotidine (Pepcid) 20 mg Q12 PO Last administered on 06/28/17 20:15; Admin Dose 20 MG; Start 06/27/17 at 21:00 Atorvastatin Calcium (Lipitor) 80 mg DAILY PO Last administered on 06/28/17 08 :54; Admin Dose 80 MG; Start 06/28/17 at 09:00 Benazepril HCl (Lotensin) 10 mg DAILY PO Last administered on 06/28/17 08:53; Admin Dose 10 MG; Start 06/28/17 at 09:00 Metoprolol Tartrate (Lopressor) 25 mg DAILY PO ; Start 06/28/17 at 09:00 Isosorbide Dinitrate (Isordil) 5 mg TID@,, PO Last administered on 20:15; Admin Dose 5 MG; Start 06/28/17 at 17:00 TAMAR GUZMÁN MD Jun 29, 2017 10:30
--- NOTE | 2017-06-29 10:40 | PN ---
Date/Time of Note Date/Time of Note DATE: 06/29/17 TIME: 10:38 Assessment/Plan VTE Prophylaxis VTE Prophylaxis Intervention: ambulation Lines/Catheters [facility] [place] [facility] Urinary Cath still in place: No Assessment/Plan Chief Complaint/Hosp Course Assessment and plan 1. Chest pain. troponins negative. Per echocardiogram patient noted with EF of 50% with stage I diastolic dysfunction. Considering patient's history tentative plan for left heart cath per manager demand. 06/29/17 3. History of CAD. Continue on aspirin and statin as well as OLGA inhibitor and beta-melony. Continue telemetry monitoring. 3. History of hypertension. Continue antihypertensives and adjust needed 4. Dyslipidemia. Continue on statin medication Disposition and plan: Tentative plan for left heart cath today. f/u with results. continue supportive care Discussed plan of care with Dr. Hollingsworth Problems: Subjective 24 Hr Interval Summary Free Text/Dictation no s/s of distress. comfortable at this time. no reports of chest pain Exam/Review of Systems Vital Signs Vitals Vital Signs Date Time Temp Pulse Resp B/P Pulse Ox O2 Delivery O2 Flow Rate FiO2 06/29/17 08:17 62 06/29/17 08:08 97.9 18 121/80 98 06/27/17 19:13 Room Air Intake and Output 06/28/17 06/28/17 06/29/17 15:00 23:00 07:00 Intake Total 800 ml 500 ml Output Total 1050 ml Balance 800 ml -550 ml Exam Constitutional: alert, oriented Psych: nl mood/affect Head: normocephalic Neck: No jvd Respiratory: clear to auscultation Cardiovascular: other (regular rate ) Gastrointestinal: non-tender, soft Musculoskeletal: nl extremities to inspection, nl gait and stance Extremities: normal pulses Neurological: WELDING SPECIALIST II-XII intact, nl mental status, nl speech Skin: No rash or lesions Results Result Diagram: 06/29/17 0647 06/29/17 0647 Results 24 hrs Laboratory Tests Test 06/29/17 06:47 White Blood Count 5.6 Red Blood Count 5.68 Hemoglobin 14.9 Hematocrit 45.5 Mean Corpuscular Volume 80.1 L Mean Corpuscular Hemoglobin 26.2 L Mean Corpuscular Hemoglobin Concent 32.7 Red Cell Distribution Width 13.7 Platelet Count 209 Mean Platelet Volume 10.1 Neutrophils % 61.1 Lymphocytes % 28.6 Monocytes % 8.3 Eosinophils % 1.3 Basophils % 0.5 Nucleated Red Blood Cells % 0.0 Neutrophils # (Manual) 3.4 Lymphocytes # 1.6 Monocytes # 0.5 Eosinophils # 0.1 Basophils # 0.0 Nucleated Red Blood Cells # 0.0 Prothrombin Time 13.8 Prothrombin Time Ratio 1.1 INR International Normalized Ratio 1.06 Sodium Level 143 Potassium Level 4.5 Chloride Level 104 Carbon Dioxide Level 25 Anion Gap 19 #H Blood Urea Nitrogen 14 Creatinine 0.81 Glucose Level 87 Calcium Level 9.5 Magnesium Level 2.0 Total Bilirubin 0.3 Direct Bilirubin 0.00 Indirect Bilirubin 0.3 Aspartate Amino Transf (AST/SGOT) 22 Alanine Aminotransferase (ALT/SGPT) 30 Alkaline Phosphatase 77 Creatine Kinase 101 Creatine Kinase Index 0.9 Creatinine Kinase MB (Mass) 0.87 Troponin I < 0.012 Total Protein 6.7 Albumin 3.8 Globulin 2.90 Albumin/Globulin Ratio 1.31 Medications Medications Current Medications Clopidogrel Bisulfate (plaVIX) 75 mg DAILY PO Last administered on 06/29/17 08 :45; Admin Dose 75 MG; Start 06/28/17 at 09:00 Aspirin (Aspirin) 81 mg DAILY PO Last administered on 06/29/17 08:45; Admin Dose 81 MG; Start 06/28/17 at 09:00 Ondansetron HCl (Zofran Inj) 4 mg Q6H PRN IV NAUSEA AND/OR VOMITING; Start at 20:00 Nitroglycerin (Nitroglycerin (Sl Tab) 0.4 Mg) 1 tab Q5M PRN SL CHEST PAIN; Start 06/27/17 at 20:00 Acetaminophen (Tylenol Tab) 650 mg Q6H PRN PO PAIN LEVEL 1-3 OR FEVER Last administered on 06/28/17 21:28; Admin Dose 650 MG; Start 06/27/17 at 20:00 Morphine Sulfate (morphine) 2 mg Q4H PRN IV PAIN LEVEL 7-10 Last administered on 06/28/17 18:33; Admin Dose 2 MG; Start 06/27/17 at 20:00 Docusate Sodium (Colace) 100 mg Q12H PRN PO CONSTIPATION; Start 06/27/17 at 20: 00 Bisacodyl (Dulcolax) 5 mg DAILY PRN PO CONSTIPATION; Start 06/27/17 at 20:00 Famotidine (Pepcid) 20 mg Q12 PO Last administered on 06/28/17 20:15; Admin Dose 20 MG; Start 06/27/17 at 21:00 Atorvastatin Calcium (Lipitor) 80 mg DAILY PO Last administered on 06/28/17 08 :54; Admin Dose 80 MG; Start 06/28/17 at 09:00 Benazepril HCl (Lotensin) 10 mg DAILY PO Last administered on 06/28/17 08:53; Admin Dose 10 MG; Start 06/28/17 at 09:00 Metoprolol Tartrate (Lopressor) 25 mg DAILY PO ; Start 06/28/17 at 09:00 Isosorbide Dinitrate (Isordil) 5 mg TID@ PO Last administered on 20:15; Admin Dose 5 MG; Start 06/28/17 at 17:00 ARACELI ODOM Jun 29, 2017 10:40
[2017-06-29] MEDS ORDERED: LIDOCAINE 1% (MDV) 20 ML INJ ONE (14:32)
[2017-06-29] MEDS ORDERED: IODIXANOL LOCM 100 ML BTL ONE ×3 (14:33→16:31)
[2017-06-29] MEDS ORDERED: FENTAnyl 50 MCG/ML VIAL ONE ×3 (14:34→16:07)
[2017-06-29] MEDS ORDERED: MIDAZOLAM 1 MG/ML 2 ML INJ ONE ×2 (14:34→16:07)
[2017-06-29] MEDS ORDERED: DIPHENHYDRAMINE 50 MG INJ ONE (15:13)
[2017-06-29] MEDS ORDERED: ONDANSETRON 4 MG INJ ONE (15:16)
[2017-06-29] MEDS ORDERED: METHYLPREDNISOLONE 125 MG INJ ONE (15:17)
[2017-06-29] MEDS ORDERED: VERAPAMIL 5 MG INJ ONE (15:19)
[2017-06-29] MEDS ORDERED: NITROGLYCERIN (IC) 100 MCG/ML INJ ONE ×2 (15:19→15:20)
[2017-06-29] MEDS ORDERED: IODIXANOL LOCM 50 ML BTL ONE (15:20)
[2017-06-29] MEDS ORDERED: BIVALIRUDIN 250MG /NS 50 ML 50 ML IVPB ONE ×2 (15:20→16:08)
[2017-06-29] MEDS ORDERED: CLOPIDOGREL 300 MG TAB ONE (17:02)
[2017-06-29] MEDS ORDERED: SOD CHLORIDE 0.9% 1,000 ML IV SCH (17:06)
--- NOTE | 2017-06-29 17:24 | OPR ---
Date/Time of Note Date/Time of Note DATE: 06/29/17 TIME: 17:09 Operative Report Procedure Date: Jun 29, 2017 Operative\Procedure Findings Occupational Health Coordinator: Traci Navarrete MD Indication: ACS. Procure performed: #1 left heart catheterization and selective right and left coronary angiogram. #2 Right femoral angiogram 3. Complex but successful PTCA and stenting of proximal and mid right coronary artery using a 3 x 32 mm Synergy and a 3.5 x 12 mm Synergy drug-eluting stent. 4. Thrombectomy of the right coronary artery using a Pronto device 4. Moderate sedation for more than 120 minutes medications used: 1. Benadryl 50 mg 2. Solu-Medrol 120 mg 3. Versed 3 mg 4. Zofran 4 mg 5. Fentanyl 250 mcg 6. Angiomax as per per protocol Findings: 1. Left main: is aneurysmal and birfurcates to LAD & LCX. 2. LAD: has 40% % stenosis at proximal LAD, and 40% % stenosis at mid LAD. There is about 60% stenosis noted of the distal LAD which was previously seen in the 2015 angiogram. 3. Left circumflex artery: is nondominant. it has multiple obtuse marginal branches. Distally at the site of the OM 2 as well as distal circumflex there is 95% to 99% stenosis at the bifurcation area. 4. RCA: is dominant. it has 99% proximal lesion with haziness at the site of it which was right before the previous stent. There is also 50% stenosis at mid RCA stent. After successful angioplasty and stenting of this lesion no significant residual stenosis was seen. 5. LV 128/7. Aortic pressure: 131/78 Procedure in detail: Written informed consent with obtained after risks benefits and alternatives discussed with the patient in detail. risks including but not limited to risk of infection vascular complications, bleeding complications, WI stroke arrhythmia renal failure at even were discussed with the patient in detail. Patient was brought into the cardiac curb and gutter laborer and placed in supine position. Right and left groin area was prepped and draped in regular sterile fashion and then he was in anesthetized using 1% lidocaine. Right femoral artery was cannulated and using modified seldinger technique a 6 Montenegrin sheath was placed in the right femoral artery. Right femoral angiogram was performed. JL4 catheter was advanced and engaged into the left main coronary artery and angiographic view was obtained. The JR4 catheter was advanced and engaged right coronary artery angiographic view was obtained. Pigtail was advanced to engage the left ventricle hemodynamics as recorded by pullback aortic pressure was measured. At this time we decided to perform PCI of the right coronary artery. A JR4 guiding head was advanced to engage the right coronary artery. BMW wire was used and advanced across the lesion with difficulty due to tortuosity of the vessel and the stents previously there and placed distal to the argery. I used a 2.5 x 12 mm balloon which was placed across the lesion and predilated the vessel. Plan to use and thrombectomy was done. I had to use another hydrophilic wire to be able to use the balloon. With the advance of jillian wire I was able to advance the balloon. Then I used a 3 by 8 mm noncompliant balloon which was advanced within the previous stent multiple times inflated to predilate the vessel. Then I used a 3 x 32 mm stent which was advanced and placed across the distal lesion and deployed at 16 gigi once the jillian wire was removed. Then I tried to put a new 3.5 x 12 mm Synergy drug-eluting stent proximal to the previous stent and overlapping with it. However trying to advance distended wire with got kicked out. I had to use multiple different wires to be able to cross into the lesion. Finally had to use a guide liner for support of the guideline and supportive balloon was able to advance the wire present distal lesion. The stent again was dilated with use of a 2.5 followed by a 3.0 balloon multiple times. With the assistance of a guideline I was able to advance a 3.5 x 12 mm drug-eluting stent at the proximal right coronary artery and deployed at 16 gigi. Final use a 3.5 x 8 noncompliant balloon which was placed within the stent and postdilated the stent up to 20 gigi multiple times.. Final angiographic view was obtained which showed OSVALDO-3 flow no evidence of dissection and no significant residual stenosis at the site of the stent. Complications: None. However patient did complain of different pain at the knee and the back and the shoulder during the procedure. In the beginning of the procedure during diagnostic angiography he also complained of feeling hot. No rashes was noted however there was a concern about a possible contrast allergy Benadryl and Solu-Medrol was given to the patient. Patient was transferred to ICU in stable condition. Conclusions: Successful PTCA stenting of the proximal and mid right coronary artery from 99% stenosis to no significant residual stenosis using a 3 x 32 mm Synergy and a 3.5 x 12 mm Synergy drug-eluting stent. Recommendations: Aggressive medical therapy. aspirin indefinitely dual antiplatlet therapy with Plavix and aspirin ICU care overnight. Stage PCI of the left circumflex was artery at a later time TRACI NAVARRETE MD Jun 29, 2017 17:23
[2017-06-29] MEDS: morphine 2 MG INJ IV PRN ×2 (18:47→21:11)
[2017-06-29] MEDS ORDERED: ATROPINE 1 MG/10 ML SYRINGE ONE (21:01)
[2017-06-30] VITALS (18 sets, daily range): BP systolic 84–144; BP diastolic 52–99; PULSE 65–100; RESP 16–20
[2017-06-30] MEDS: PANTOPRAZOLE (EC) 40 MG TAB PO SCH (05:12)
[2017-06-30] MEDS: morphine 2 MG INJ IV PRN (05:17)
--- NOTE | 2017-06-30 07:45 | CONS ---
Date/Time of Note Date/Time of Note DATE: 06/30/17 TIME: 07:40 Consult Date/Type/Reason Admit Date/Time Jun 27, 2017 at 17:44 Initial Consult Date Subjective d/w staff and rhythm was reviewed. pt remains in NSR with minimal groin pain no chest pain at rest now. General: no acute distress HEENT: NC/AT. pupils are equal. round. NECK: NO JVD. no stridor. CV: RRR. systolic murmur; no gallop or rubs. PULM: no wheezing or rhonchi. GI: SOFT, NT, ND, no rebound or guarding Extremity: trace B/L LE edema. no clubbing. neuro: awake and alert, OX3. Psych: calm and pleasant rectal: deferred : normal vascular R fem no bleeding or hematoma Objective Vital Signs Date Time Temp Pulse Resp B/P Pulse Ox O2 Delivery O2 Flow Rate FiO2 06/30/17 06:00 76 18 129/86 99 Nasal Cannula 06/30/17 04:00 98.5 06/29/17 20:00 2.0 Intake and Output 06/29/17 06/29/17 06/30/17 15:00 23:00 07:00 Intake Total 790 ml 780 ml Output Total 500 ml 525 ml Balance 290 ml 255 ml Results/Medications Result Diagram: 06/29/17 0647 06/29/17 0647 Medications Current Medications Clopidogrel Bisulfate (plaVIX) 75 mg DAILY PO Last administered on 06/29/17 08 :45; Admin Dose 75 MG; Start 06/28/17 at 09:00 Aspirin (Aspirin) 81 mg DAILY PO Last administered on 06/29/17 08:45; Admin Dose 81 MG; Start 06/28/17 at 09:00 Ondansetron HCl (Zofran Inj) 4 mg Q6H PRN IV NAUSEA AND/OR VOMITING; Start at 20:00 Nitroglycerin (Nitroglycerin (Sl Tab) 0.4 Mg) 1 tab Q5M PRN SL CHEST PAIN; Start 06/27/17 at 20:00 Acetaminophen (Tylenol Tab) 650 mg Q6H PRN PO PAIN LEVEL 1-3 OR FEVER Last administered on 06/28/17 21:28; Admin Dose 650 MG; Start 06/27/17 at 20:00 Morphine Sulfate (morphine) 2 mg Q4H PRN IV PAIN LEVEL 7-10 Last administered on 06/30/17 05:17; Admin Dose 2 MG; Start 06/27/17 at 20:00 Docusate Sodium (Colace) 100 mg Q12H PRN PO CONSTIPATION; Start 06/27/17 at 20: 00 Bisacodyl (Dulcolax) 5 mg DAILY PRN PO CONSTIPATION; Start 06/27/17 at 20:00 Famotidine (Pepcid) 20 mg Q12 PO Last administered on 06/28/17 20:15; Admin Dose 20 MG; Start 06/27/17 at 21:00 Atorvastatin Calcium (Lipitor) 80 mg DAILY PO Last administered on 06/28/17 08 :54; Admin Dose 80 MG; Start 06/28/17 at 09:00 Benazepril HCl (Lotensin) 10 mg DAILY PO Last administered on 06/28/17 08:53; Admin Dose 10 MG; Start 06/28/17 at 09:00 Metoprolol Tartrate (Lopressor) 25 mg DAILY PO ; Start 06/28/17 at 09:00 Isosorbide Dinitrate (Isordil) 5 mg TID@,,17 PO Last administered on 20:15; Admin Dose 5 MG; Start 06/28/17 at 17:00 Pantoprazole (Protonix Tab) 40 mg DAILY@06 PO Last administered on 06/30/17 05 :12; Admin Dose 40 MG; Start 06/30/17 at 06:00 Assessment/Plan Chief Complaint/Hosp Course 1. ACS 2. CAD 3. S/P PCI RCA with significant LCX/ OM bifurcation lesion 4. HTN 5. Dyslipiemia 6.hx drug use 7.? contrast allergy cont ASA/PLAVIX ISORDIL LHC/ lv PCI LCX/OM next 1-2 days as cath laboratory technician scheduling allows. may need to premedicate prior to the procedure for possible contrast allergy. R/B/A procedure d/w pt in detail and consent was obtained. ok to transfer to [facility] Thank you Problems: TRACI ALVES MD Jun 30, 2017 07:45
[2017-06-30 08:38] LABS: BASOPHILS % 0.1 % (0.0-2.0); HEMATOCRIT 43.6 % (42.0-52.0); HEMOGLOBIN 14.2 g/dl (14.0-18.0); LYMPHOCYTES # 1.2 10^3/ul (0.8-2.9); LYMPHOCYTES % 9.2 % (15.0-51.0); MEAN CORPUSCULAR HEMOGLOBIN 26.1 pg (29.0-33.0); MEAN CORPUSCULAR HGB CONC 32.6 g/dl (32.0-37.0); MEAN CORPUSCULAR VOLUME 80.1 fl (82.0-101.0); MEAN PLATELET VOLUME 10.1 fl (7.4-10.4); MONOCYTE # 0.9 10^3/ul (0.3-0.9); MONOCYTES % 6.7 % (0.0-11.0); NEUTROPHILS % 83.5 % (39.0-77.0); PLATELET COUNT 210 10^3/UL (140-415); RED BLOOD COUNT 5.44 10^6/ul (4.70-6.10); RED CELL DISTRIBUTION WIDTH 14.1 % (11.5-14.5); WHITE BLOOD COUNT 13.3 10^3/ul (4.8-10.8)
[2017-06-30] MEDS: FAMOTIDINE 20 MG TAB PO SCH (09:00)
[2017-06-30 09:05] LABS: ALBUMIN 3.8 g/dl (3.3-4.9); ALBUMIN/GLOBULIN RATIO 1.22; BILIRUBIN,INDIRECT 0.3 mg/dl (0-1.1); BILIRUBIN,TOTAL 0.3 mg/dl (0.2-1.3); CALCIUM 9.2 mg/dl (8.4-10.2); CREATININE 0.82 mg/dl (0.61-1.24); MAGNESIUM 1.9 mg/dl (1.7-2.5); PHOSPHORUS 4.4 mg/dl (2.5-4.9); POTASSIUM 4.5 mmol/L (3.5-5.1); TOTAL PROTEIN 6.9 g/dl (6.1-8.1)
[2017-06-30] MEDS: BENAZEPRIL 10 MG TAB PO SCH (09:10)
[2017-06-30] MEDS: ATORVASTATIN 10 MG TAB PO SCH (09:10)
[2017-06-30] MEDS: ISOSORBIDE DINITRATE 5 MG TAB PO SCH ×3 (09:10→17:28)
[2017-06-30] MEDS: CLOPIDOGREL 75 MG TAB PO SCH (09:11)
[2017-06-30] MEDS: METOPROLOL 25 MG TAB PO SCH (09:11)
[2017-06-30] MEDS: ASPIRIN 81 MG TAB PO SCH (09:12)
[2017-06-30 09:24] LABS: CK-MB 9.35 ng/ml (0.0-2.4); TROPONIN-I 2.05 ng/ml (0.00-0.12)
[2017-06-30] MEDS: ACETAMINOPHEN 325 MG TAB PO PRN (09:40)
[2017-06-30] MEDS: predniSONE 20 MG TAB PO SCH (17:28)
--- NOTE | 2017-06-30 17:49 | PN ---
Date/Time of Note Date/Time of Note DATE: 06/30/17 TIME: 17:46 Assessment/Plan VTE Prophylaxis VTE Prophylaxis Intervention: SCD's Lines/Catheters IV [facility]from [facility]): Peripheral IV Urinary Cath still in place: No Assessment/Plan Chief Complaint/Hosp Course Assessment and plan 1. Chest pain. troponins negative. Per echocardiogram patient noted with EF of 50% with stage I diastolic dysfunction. Patient status post left heart cath with stent to RCA (noted with 99% occlusion of artery). Patient tolerated well. The plan for cardiac intervention in a.m. We will follow-up 3. History of CAD. Continue on aspirin and statin as well as OLGA inhibitor and beta-melony. Continue telemetry monitoring. 3. History of hypertension. Continue antihypertensives and adjust needed 4. Dyslipidemia. Continue on statin medication Disposition and plan: Status post RCA stent. Follow-up with project crew worker recommendations. Tentative plan for further PCI. We will follow-up Discussed plan of care with Dr. Hollingsworth Problems: Subjective 24 Hr Interval Summary Free Text/Dictation Patient resting at this time. Denies any chest pain or shortness of breath. Comfortable at present. Exam/Review of Systems Vital Signs Vitals Vital Signs Date Time Temp Pulse Resp B/P Pulse Ox O2 Delivery O2 Flow Rate FiO2 06/30/17 16:40 98.9 71 17 84/52 95 06/30/17 10:45 Room Air 06/29/17 20:00 2.0 Intake and Output 06/29/17 06/29/17 06/30/17 15:00 23:00 07:00 Intake Total 790 ml 780 ml Output Total 500 ml 525 ml Balance 290 ml 255 ml Exam Constitutional: alert, oriented Head: normocephalic Respiratory: clear to auscultation Cardiovascular: regular rate and rhythm Gastrointestinal: soft Neurological: WAREHOUSE INVENTORY CLERK II-XII intact, nl mental status, nl speech Skin: nl turgor Results Result Diagram: 06/30/17 0816 06/30/17 0816 Results 24 hrs Laboratory Tests Test 06/30/17 08:16 White Blood Count 13.3 #H Red Blood Count 5.44 Hemoglobin 14.2 Hematocrit 43.6 Mean Corpuscular Volume 80.1 L Mean Corpuscular Hemoglobin 26.1 L Mean Corpuscular Hemoglobin Concent 32.6 Red Cell Distribution Width 14.1 Platelet Count 210 Mean Platelet Volume 10.1 Neutrophils % 83.5 H Lymphocytes % 9.2 L Monocytes % 6.7 Eosinophils % 0.0 Basophils % 0.1 Nucleated Red Blood Cells % 0.0 Neutrophils # (Manual) 11.1 H Lymphocytes # 1.2 Monocytes # 0.9 Eosinophils # 0.0 Basophils # 0.0 Nucleated Red Blood Cells # 0.0 Sodium Level 141 Potassium Level 4.5 Chloride Level 105 Carbon Dioxide Level 24 Anion Gap 17 H Blood Urea Nitrogen 19 Creatinine 0.82 Glucose Level 101 Calcium Level 9.2 Phosphorus Level 4.4 Magnesium Level 1.9 Total Bilirubin 0.3 Direct Bilirubin 0.00 Indirect Bilirubin 0.3 Aspartate Amino Transf (AST/SGOT) 30 Alanine Aminotransferase (ALT/SGPT) 33 Alkaline Phosphatase 75 Creatine Kinase 193 Creatine Kinase Index 4.8 Creatinine Kinase MB (Mass) 9.35 H Troponin I 2.050 *H Total Protein 6.9 Albumin 3.8 Globulin 3.10 Albumin/Globulin Ratio 1.22 Medications Medications Current Medications Clopidogrel Bisulfate (plaVIX) 75 mg DAILY PO Last administered on 06/30/17 09 :11; Admin Dose 75 MG; Start 06/28/17 at 09:00 Aspirin (Aspirin) 81 mg DAILY PO Last administered on 06/30/17 09:12; Admin Dose 81 MG; Start 06/28/17 at 09:00 Ondansetron HCl (Zofran Inj) 4 mg Q6H PRN IV NAUSEA AND/OR VOMITING; Start at 20:00 Nitroglycerin (Nitroglycerin (Sl Tab) 0.4 Mg) 1 tab Q5M PRN SL CHEST PAIN; Start 06/27/17 at 20:00 Acetaminophen (Tylenol Tab) 650 mg Q6H PRN PO PAIN LEVEL 1-3 OR FEVER Last administered on 06/30/17 09:40; Admin Dose 650 MG; Start 06/27/17 at 20:00 Morphine Sulfate (morphine) 2 mg Q4H PRN IV PAIN LEVEL 7-10 Last administered on 06/30/17 05:17; Admin Dose 2 MG; Start 06/27/17 at 20:00 Docusate Sodium (Colace) 100 mg Q12H PRN PO CONSTIPATION; Start 06/27/17 at 20: 00 Bisacodyl (Dulcolax) 5 mg DAILY PRN PO CONSTIPATION; Start 06/27/17 at 20:00 Atorvastatin Calcium (Lipitor) 80 mg DAILY PO Last administered on 06/30/17 09 :10; Admin Dose 80 MG; Start 06/28/17 at 09:00 Benazepril HCl (Lotensin) 10 mg DAILY PO Last administered on 06/30/17 09:10; Admin Dose 10 MG; Start 06/28/17 at 09:00 Metoprolol Tartrate (Lopressor) 25 mg DAILY PO Last administered on 06/30/17 09:11; Admin Dose 25 MG; Start 06/28/17 at 09:00 Isosorbide Dinitrate (Isordil) 5 mg TID@,,17 PO Last administered on 17:28; Admin Dose 5 MG; Start 06/28/17 at 17:00 Pantoprazole (Protonix Tab) 40 mg DAILY@06 PO Last administered on 06/30/17 05 :12; Admin Dose 40 MG; Start 06/30/17 at 06:00 Prednisone (Prednisone) 60 mg Q6 PO Last administered on 06/30/17 17:28; Admin Dose 60 MG; Start 06/30/17 at 18:00; Stop 07/01/17 at 06:01 Ranitidine HCl (Zantac) 150 mg Q8H PO ; Start 06/30/17 at 18:00; Stop 07/01/17 at 10:01 ARACELI ODOM Jun 30, 2017 17:49
[2017-06-30] MEDS ORDERED: CIMETIDINE 300 MG TAB PO SCH (18:00)
[2017-06-30] MEDS ORDERED: RANITIDINE 150 MG TAB PO SCH (18:00)
[2017-06-30] MEDS: RANITIDINE 150 MG TAB PO SCH (21:24)
[2017-07-01] VITALS (41 sets, daily range): BP systolic 112–150; BP diastolic 66–93; PULSE 54–91; RESP 14–39
[2017-07-01] MEDS: predniSONE 20 MG TAB PO SCH ×2 (01:45→06:41)
[2017-07-01] MEDS: PANTOPRAZOLE (EC) 40 MG TAB PO SCH (06:41)
[2017-07-01] MEDS: RANITIDINE 150 MG TAB PO SCH (06:41)
[2017-07-01] MEDS ORDERED: LIDOCAINE 1% (MDV) 20 ML INJ ONE (07:01)
[2017-07-01] MEDS ORDERED: IODIXANOL LOCM 100 ML BTL ONE ×2 (07:01→08:45)
[2017-07-01] MEDS ORDERED: MIDAZOLAM 1 MG/ML 2 ML INJ ONE (07:01)
[2017-07-01] MEDS ORDERED: FENTAnyl 50 MCG/ML VIAL ONE (07:01)
[2017-07-01] MEDS ORDERED: NITROGLYCERIN (IC) 100 MCG/ML INJ ONE (07:12)
[2017-07-01] MEDS ORDERED: VERAPAMIL 5 MG INJ ONE (07:35)
[2017-07-01] MEDS ORDERED: DIPHENHYDRAMINE 50 MG INJ ONE (07:38)
[2017-07-01] MEDS ORDERED: BIVALIRUDIN 250MG /NS 50 ML 100 ML IVPB ONE (08:26)
[2017-07-01] MEDS ORDERED: CLOPIDOGREL 75 MG TAB ONE (09:21)
[2017-07-01] MEDS ORDERED: ASPIRIN 81 MG TAB ONE (09:21)
--- NOTE | 2017-07-01 09:40 | OPR ---
Date/Time of Note Date/Time of Note DATE: 07/01/17 TIME: 09:32 Operative Report Procedure Date: Jul 01, 2017 Operative\Procedure Findings Environmental Protection Specialist: Traci Navarrete MD Indication: NSTEMI. Procure performed: #1 selective right and left coronary angiogram. #2 Right femoral angiogram 3. Successful complicated PTCA and cutting balloon angioplasty of distal LCX ( RELIGIOUS EDUCATION TEACHER) and OM2 4. Moderate sedation for more than 120 minutes Findings: 1. Left main: is aneurysma and birfurcates to LAD & LCX. 2. LAD: has 40% % stenosis at proximal LAD, and 40% % stenosis at mid LAD. There is about 60% stenosis noted of the distal LAD which was previously seen in the 2015 angiogram. 3. Left circumflex artery: is nondominant. it has 3 OM. after OM1 there is heavy calcification and up to 60% stenosis. OM2 ostial has 99%. distal LCX was 100% occluded ( RELIGIOUS EDUCATION TEACHER) 4. RCA: is dominant. it has 10% stenosis at stents side. Procedure in detail: Written informed consent with obtained after risks benefits and alternatives discussed with the patient in detail. risks including but not limited to risk of infection vascular complications, bleeding complications, [place] stroke arrhythmia renal failure at even were discussed with the patient in detail. Patient was brought into the cardiac laborer poultry hatchery and placed in supine position. Right and left groin area was prepped and draped in regular sterile fashion and then he was in anesthetized using 1% lidocaine. Right femoral artery was cannulated and using modified seldinger technique a 5 [place] sheath was placed in the right femoral artery. Right femoral angiogram was performed. then I changed the sheath to a 7 F sheath. voda 3.5 catheter was advanced and engaged into the left main coronary artery and angiographic view was obtained. The JR4 catheter was advanced and engaged right coronary artery angiographic view was obtained. At this time we decided to perform PCI of the LCX artery. A VODA 4 guiding head was advanced to engage the OM2 artery. multiple different wires was used and finally with aid balloon support a PT was able to be advanced across the lesion and placed distal to the LCX. I used a 2X15 balloon which was placed across the lesion and predilated the vessel. Had to use multiple different balloons including noncompliant balloon with a different variable sizes in both obtuse marginal and left cecum artery to angioplasty these lesions. It appears that the current noncompliant balloon could not completely open at the site of the calcified lesion at the ostium obtuse marginal. A 2.5 and 2.0 cutting balloon was used to place across the lesion. It was again very difficult to advance into the lesion Cutting Balloon angioplasties was done. Multiple different balloon angioplasty balloon was also done again using a 2021 up to 2.5 noncompliant balloon. Final angiographic view was obtained which showed OSVALDO-3 flow no evidence of dissection and < 30% residual stenosis at the site of the PTCA.. I decided not to put the stent because of the bifurcation lesion would jeopardize the other branch artery and also the fact that the balloon could not completely open up. Artery also appear to be too small for rotoblading. Patient tolerated the procedure well with no complication. Patient was transferred to ICU in stable condition. 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 Recommendations: Aggressive medical therapy. aspirin indefinitely dual antiplatlet therapy with ASA PLAVIX ICU care overnight. TRACI NAVARRETE MD Jul 01, 2017 09:40
[2017-07-01] MEDS: SOD CHLORIDE 0.9% 1,000 ML IV SCH ×2 (09:57→18:13)
[2017-07-01 10:31] LABS: BASOPHILS % 0.1 % (0.0-2.0); HEMATOCRIT 43.2 % (42.0-52.0); HEMOGLOBIN 14.2 g/dl (14.0-18.0); LYMPHOCYTES # 0.7 10^3/ul (0.8-2.9); LYMPHOCYTES % 6.6 % (15.0-51.0); MEAN CORPUSCULAR HEMOGLOBIN 26.6 pg (29.0-33.0); MEAN CORPUSCULAR HGB CONC 32.9 g/dl (32.0-37.0); MEAN CORPUSCULAR VOLUME 81.1 fl (82.0-101.0); MONOCYTE # 0.1 10^3/ul (0.3-0.9); MONOCYTES % 1.2 % (0.0-11.0); NEUTROPHILS % 91.7 % (39.0-77.0); PLATELET COUNT 190 10^3/UL (140-415); RED BLOOD COUNT 5.33 10^6/ul (4.70-6.10); RED CELL DISTRIBUTION WIDTH 13.9 % (11.5-14.5); WHITE BLOOD COUNT 10.2 10^3/ul (4.8-10.8)
[2017-07-01 10:43] LABS: ALBUMIN 4.1 g/dl (3.3-4.9); ALBUMIN/GLOBULIN RATIO 1.36; BILIRUBIN,INDIRECT 0.4 mg/dl (0-1.1); BILIRUBIN,TOTAL 0.4 mg/dl (0.2-1.3); CREATININE 0.82 mg/dl (0.61-1.24); MAGNESIUM 2.1 mg/dl (1.7-2.5); POTASSIUM 4.4 mmol/L (3.5-5.1); TOTAL PROTEIN 7.1 g/dl (6.1-8.1)
--- NOTE | 2017-07-01 11:07 | CONS ---
Date/Time of Note Date/Time of Note DATE: 07/01/17 TIME: 11:05 Consult Date/Type/Reason Admit Date/Time Jun 27, 2017 at 17:44 Subjective d/w staff and rhythm was reviewed. pt remains in NSR with minimal groin pain no chest pain at rest now. s/p PTCA LCX/OM General: no acute distress HEENT: NC/AT. pupils are equal. round. NECK: NO JVD. no stridor. CV: RRR. systolic murmur; no gallop or rubs. PULM: no wheezing or rhonchi. GI: SOFT, NT, ND, no rebound or guarding Extremity: trace B/L LE edema. no clubbing. neuro: awake and alert, OX3. Psych: calm and pleasant rectal: deferred : normal vascular R fem sheath in place with no bleeding or hematoma Objective Vital Signs Date Time Temp Pulse Resp B/P Pulse Ox O2 Delivery O2 Flow Rate FiO2 07/01/17 10:35 60 15 132/76 95 Nasal Cannula 2.0 07/01/17 09:40 98.3 Intake and Output 06/30/17 06/30/17 07/01/17 15:00 23:00 07:00 Intake Total 840 ml 850 ml Output Total 200 ml Balance 640 ml 850 ml Results/Medications Result Diagram: 07/01/17 1011 07/01/17 1011 Results 24 hrs Laboratory Tests Test 07/01/17 10:11 White Blood Count 10.2 # Red Blood Count 5.33 Hemoglobin 14.2 Hematocrit 43.2 Mean Corpuscular Volume 81.1 L Mean Corpuscular Hemoglobin 26.6 L Mean Corpuscular Hemoglobin Concent 32.9 Red Cell Distribution Width 13.9 Platelet Count 190 Mean Platelet Volume 10.0 Neutrophils % 91.7 H Lymphocytes % 6.6 L Monocytes % 1.2 Eosinophils % 0.0 Basophils % 0.1 Nucleated Red Blood Cells % 0.0 Neutrophils # (Manual) 9 H Lymphocytes # 0.7 L Monocytes # 0.1 L Eosinophils # 0.0 Basophils # 0.0 Nucleated Red Blood Cells # 0.0 Sodium Level 136 Potassium Level 4.4 Chloride Level 103 Carbon Dioxide Level 23 Anion Gap 14 Blood Urea Nitrogen 16 Creatinine 0.82 Glucose Level 110 Calcium Level 9.0 Magnesium Level 2.1 Total Bilirubin 0.4 Direct Bilirubin 0.00 Indirect Bilirubin 0.4 Aspartate Amino Transf (AST/SGOT) 28 Alanine Aminotransferase (ALT/SGPT) 32 Alkaline Phosphatase 78 Total Protein 7.1 Albumin 4.1 Globulin 3.00 Albumin/Globulin Ratio 1.36 Medications Current Medications Clopidogrel Bisulfate (plaVIX) 75 mg DAILY PO Last administered on 06/30/17 09 :11; Admin Dose 75 MG; Start 06/28/17 at 09:00 Aspirin (Aspirin) 81 mg DAILY PO Last administered on 06/30/17 09:12; Admin Dose 81 MG; Start 06/28/17 at 09:00 Ondansetron HCl (Zofran Inj) 4 mg Q6H PRN IV NAUSEA AND/OR VOMITING; Start at 20:00 Nitroglycerin (Nitroglycerin (Sl Tab) 0.4 Mg) 1 tab Q5M PRN SL CHEST PAIN; Start 06/27/17 at 20:00 Acetaminophen (Tylenol Tab) 650 mg Q6H PRN PO PAIN LEVEL 1-3 OR FEVER Last administered on 06/30/17 09:40; Admin Dose 650 MG; Start 06/27/17 at 20:00 Morphine Sulfate (morphine) 2 mg Q4H PRN IV PAIN LEVEL 7-10 Last administered on 06/30/17 05:17; Admin Dose 2 MG; Start 06/27/17 at 20:00 Docusate Sodium (Colace) 100 mg Q12H PRN PO CONSTIPATION; Start 06/27/17 at 20: 00 Bisacodyl (Dulcolax) 5 mg DAILY PRN PO CONSTIPATION; Start 06/27/17 at 20:00 Atorvastatin Calcium (Lipitor) 80 mg DAILY PO Last administered on 06/30/17 09 :10; Admin Dose 80 MG; Start 06/28/17 at 09:00 Benazepril HCl (Lotensin) 10 mg DAILY PO Last administered on 06/30/17 09:10; Admin Dose 10 MG; Start 06/28/17 at 09:00 Metoprolol Tartrate (Lopressor) 25 mg DAILY PO Last administered on 06/30/17 09:11; Admin Dose 25 MG; Start 06/28/17 at 09:00 Isosorbide Dinitrate (Isordil) 5 mg TID@,17 PO Last administered on 17:28; Admin Dose 5 MG; Start 06/28/17 at 17:00 Pantoprazole (Protonix Tab) 40 mg DAILY@06 PO Last administered on 07/01/17 06 :41; Admin Dose 40 MG; Start 06/30/17 at 06:00 Miscellaneous Information Hold all Metformin ... ONCE XX ; Start 07/01/17 at 09: 30; Stop 07/03/17 at 09:29 Sodium Chloride (NS) 1,000 ml @ 100 mls/hr Q10H IV Last administered on 09:57; Admin Dose 100 MLS/HR; Start 07/01/17 at 09:26; Stop 07/01/17 at 19: 25 Assessment/Plan Chief Complaint/Hosp Course 1. ACS/ NSTEMI 2. CAD 3. S/P PCI RCA with significant LCX/ OM bifurcation lesion 4. HTN 5. Dyslipiemia 6.hx drug use 7.? contrast allergy cont ASA/PLAVIX ISORDIL LHC/ lv PCI LCX/OM next 1-2 days as sugar laboratory assistant scheduling allows. dc planning for tomorrow. Thank you Problems: TRACI ALVES MD Jul 01, 2017 11:07
[2017-07-01 11:35] LABS: CK-MB 4.03 ng/ml (0.0-2.4); TROPONIN-I 0.863 ng/ml (0.00-0.12)
[2017-07-01] MEDS: ISOSORBIDE DINITRATE 5 MG TAB PO SCH ×3 (13:00→19:09)
[2017-07-01] MEDS: ASPIRIN 81 MG TAB PO SCH (15:00)
[2017-07-01] MEDS: CLOPIDOGREL 75 MG TAB PO SCH (15:00)
[2017-07-01] MEDS: BENAZEPRIL 10 MG TAB PO SCH (15:25)
[2017-07-01] MEDS: METOPROLOL 25 MG TAB PO SCH (15:26)
[2017-07-01] MEDS: ATORVASTATIN 80 MG TAB PO SCH (18:12)
[2017-07-02] VITALS (18 sets, daily range): BP systolic 86–128; BP diastolic 61–85; PULSE 61–84; RESP 14–27
[2017-07-02] MEDS: PANTOPRAZOLE (EC) 40 MG TAB PO SCH (06:09)
[2017-07-02 06:33] LABS: BASOPHILS % 0.3 % (0.0-2.0); EOSINOPHILS % 0.1 % (0.0-7.0); HEMATOCRIT 37.9 % (42.0-52.0); HEMOGLOBIN 12.6 g/dl (14.0-18.0); LYMPHOCYTES # 2.3 10^3/ul (0.8-2.9); LYMPHOCYTES % 21.5 % (15.0-51.0); MEAN CORPUSCULAR HEMOGLOBIN 26.4 pg (29.0-33.0); MEAN CORPUSCULAR HGB CONC 33.2 g/dl (32.0-37.0); MEAN CORPUSCULAR VOLUME 79.3 fl (82.0-101.0); MEAN PLATELET VOLUME 10.7 fl (7.4-10.4); MONOCYTE # 0.8 10^3/ul (0.3-0.9); MONOCYTES % 7.9 % (0.0-11.0); NEUTROPHILS % 69.8 % (39.0-77.0); PLATELET COUNT 167 10^3/UL (140-415); RED BLOOD COUNT 4.78 10^6/ul (4.70-6.10); RED CELL DISTRIBUTION WIDTH 14.2 % (11.5-14.5); WHITE BLOOD COUNT 10.6 10^3/ul (4.8-10.8)
[2017-07-02 06:59] LABS: ALBUMIN 3.4 g/dl (3.3-4.9); ALBUMIN/GLOBULIN RATIO 1.17; BILIRUBIN,INDIRECT 0.4 mg/dl (0-1.1); BILIRUBIN,TOTAL 0.4 mg/dl (0.2-1.3); CALCIUM 8.6 mg/dl (8.4-10.2); CREATININE 0.78 mg/dl (0.61-1.24); TOTAL PROTEIN 6.3 g/dl (6.1-8.1)
[2017-07-02 07:15] LABS: CK-MB 3.56 ng/ml (0.0-2.4); TROPONIN-I 1.33 ng/ml (0.00-0.12)
[2017-07-02] MEDS: BENAZEPRIL 10 MG TAB PO SCH (08:01)
[2017-07-02] MEDS: CLOPIDOGREL 75 MG TAB PO SCH (08:01)
[2017-07-02] MEDS: ISOSORBIDE DINITRATE 5 MG TAB PO SCH ×3 (08:01→18:23)
[2017-07-02] MEDS: ASPIRIN 81 MG TAB PO SCH (08:01)
[2017-07-02] MEDS: ATORVASTATIN 80 MG TAB PO SCH (08:01)
[2017-07-02] MEDS: METOPROLOL 25 MG TAB PO SCH (08:02)
--- NOTE | 2017-07-02 13:39 | RADRPT ---
Vent Rate: 98 bpm RR Interval: 0 msec CO Interval: 198 msec QRS Duration: 80 msec QT Interval: 354 msec QTC Interval: 451 msec P-R-T [place]: 63 - 66 - 56 degrees Normal sinus rhythm Normal ECG Electronically Signed By: Valdo Mendes [id number]
--- NOTE | 2017-07-02 13:40 | RADRPT ---
Vent Rate: 81 bpm RR Interval: 0 msec VA Interval: 198 msec QRS Duration: 76 msec QT Interval: 380 msec QTC Interval: 441 msec P-R-T [place]: 60 - 67 - 67 degrees Normal sinus rhythm Normal ECG Electronically Signed By: Valdo Mendes [id number]
--- NOTE | 2017-07-02 13:47 | RADRPT ---
Vent Rate: 59 bpm RR Interval: 0 msec MS Interval: 202 msec QRS Duration: 82 msec QT Interval: 426 msec QTC Interval: 421 msec P-R-T [place]: 37 - 67 - 54 degrees Sinus bradycardia Otherwise normal ECG Electronically Signed By: Valdo Mendes [id number]
[2017-07-02] MEDS: ACETAMINOPHEN 325 MG TAB PO PRN (14:49)
--- NOTE | 2017-07-02 16:35 | CONS ---
Date/Time of Note Date/Time of Note DATE: 07/02/17 TIME: 16:34 Consult Date/Type/Reason Admit Date/Time Jun 27, 2017 at 17:44 Subjective d/w staff and rhythm was reviewed. pt remains in NSR with no groin pain no chest pain at rest now. General: no acute distress HEENT: NC/AT. pupils are equal. round. NECK: NO JVD. no stridor. CV: RRR. systolic murmur; no gallop or rubs. PULM: no wheezing or rhonchi. GI: SOFT, NT, ND, no rebound or guarding Extremity: trace B/L LE edema. no clubbing. neuro: awake and alert, OX3. Psych: calm and pleasant rectal: deferred : normal vascular R fem no bleeding or hematoma Objective Vital Signs Date Time Temp Pulse Resp B/P Pulse Ox O2 Delivery O2 Flow Rate FiO2 07/02/17 15:00 70 22 102/65 100 Room Air 07/02/17 12:00 97.5 07/01/17 11:15 2.0 Intake and Output 07/01/17 07/01/17 07/02/17 15:00 23:00 07:00 Intake Total 152 ml 900 ml 300 ml Output Total 1250 ml 1220 ml 830 ml Balance -1098 ml -320 ml -530 ml Results/Medications Result Diagram: 07/02/17 0612 07/02/17 0613 Results 24 hrs Laboratory Tests Test 07/02/17 06:12 07/02/17 06:13 White Blood Count 10.6 Red Blood Count 4.78 Hemoglobin 12.6 L Hematocrit 37.9 L Mean Corpuscular Volume 79.3 L Mean Corpuscular Hemoglobin 26.4 L Mean Corpuscular Hemoglobin Concent 33.2 Red Cell Distribution Width 14.2 Platelet Count 167 Mean Platelet Volume 10.7 H Neutrophils % 69.8 Lymphocytes % 21.5 Monocytes % 7.9 Eosinophils % 0.1 Basophils % 0.3 Nucleated Red Blood Cells % 0.0 Neutrophils # (Manual) 7 Lymphocytes # 2.3 Monocytes # 0.8 Eosinophils # 0.0 Basophils # 0.0 Nucleated Red Blood Cells # 0.0 Sodium Level 141 Potassium Level 4.0 Chloride Level 104 Carbon Dioxide Level 24 Anion Gap 17 H Blood Urea Nitrogen 15 Creatinine 0.78 Glucose Level 79 Calcium Level 8.6 Total Bilirubin 0.4 Direct Bilirubin 0.00 Indirect Bilirubin 0.4 Aspartate Amino Transf (AST/SGOT) 25 Alanine Aminotransferase (ALT/SGPT) 34 Alkaline Phosphatase 63 Creatine Kinase 89 Creatine Kinase Index 4.0 Creatinine Kinase MB (Mass) 3.56 H Troponin I 1.330 *H Total Protein 6.3 Albumin 3.4 Globulin 2.90 Albumin/Globulin Ratio 1.17 Medications Current Medications Clopidogrel Bisulfate (plaVIX) 75 mg DAILY PO Last administered on 07/02/17 08 :01; Admin Dose 75 MG; Start 06/28/17 at 09:00 Aspirin (Aspirin) 81 mg DAILY PO Last administered on 07/02/17 08:01; Admin Dose 81 MG; Start 06/28/17 at 09:00 Ondansetron HCl (Zofran Inj) 4 mg Q6H PRN IV NAUSEA AND/OR VOMITING; Start at 20:00 Nitroglycerin (Nitroglycerin (Sl Tab) 0.4 Mg) 1 tab Q5M PRN SL CHEST PAIN; Start 06/27/17 at 20:00 Acetaminophen (Tylenol Tab) 650 mg Q6H PRN PO PAIN LEVEL 1-3 OR FEVER Last administered on 07/02/17 14:49; Admin Dose 650 MG; Start 06/27/17 at 20:00 Morphine Sulfate (morphine) 2 mg Q4H PRN IV PAIN LEVEL 7-10 Last administered on 06/30/17 05:17; Admin Dose 2 MG; Start 06/27/17 at 20:00 Docusate Sodium (Colace) 100 mg Q12H PRN PO CONSTIPATION; Start 06/27/17 at 20: 00 Bisacodyl (Dulcolax) 5 mg DAILY PRN PO CONSTIPATION; Start 06/27/17 at 20:00 Isosorbide Dinitrate (Isordil) 5 mg TID@,,17 PO Last administered on 12:37; Admin Dose 5 MG; Start 06/28/17 at 17:00 Pantoprazole (Protonix Tab) 40 mg DAILY@06 PO Last administered on 07/02/17 06 :09; Admin Dose 40 MG; Start 06/30/17 at 06:00 Miscellaneous Information (* Miscellaneous Pharmacy Order) Hold all Metformin ... ONCE XX Last administered on 07/01/17 15:00; Admin Dose 1 EA; Start at 09:30; Stop 07/03/17 at 09:29 Atorvastatin Calcium (Lipitor) 80 mg DAILY PO Last administered on 07/02/17 08 :01; Admin Dose 80 MG; Start 07/01/17 at 16:00 Metoprolol Succinate (Toprol Xl) 25 mg DAILY PO ; Start 07/03/17 at 09:00 Assessment/Plan Chief Complaint/Hosp Course 1. ACS/ NSTEMI 2. CAD 3. S/P PCI RCA with significant LCX/ OM bifurcation lesion 4. HTN 5. Dyslipiemia 6.hx drug use 7.? contrast allergy cont ASA/PLAVIX toprol xl 25 dc OLGA DUE TO HYPTENSION DC HOME F/U WITH DR BONNIE LEE Thank you Problems: TRACI ALVES MD Jul 02, 2017 16:35
--- NOTE | 2017-07-02 16:40 | PDOCDIS ---
Discharge Instructions DIAGNOSIS Discharge Diagnosis CAD CONDITION Patient Condition: Stable HOME CARE INSTRUCTIONS: Diet Instructions: Low Fat /CholesterolSpecial Diet: CARDIAC FOLLOW UP/APPOINTMENTS Follow-up Plan Kiko Landrum MD Specialty Cardiology Office Address [address] [place] [address] Office OTHER ORDERS: Other Orders: 1. Take medications as per prescription. Never stop taking aspirin and Plavix unless you talk to your handle lathe operator. 2. Take a low-cholesterol diet. 3. Activities as tolerated. 4. Follow-up with cardiology (dr. Landrum) in 2 weeks. 5. Please call 911 or go to the nearest emergency room if you have any chest pain. EULALIO RODRÍGUEZ NP Jul 02, 2017 16:39
[2017-07-02] MEDS ORDERED: METO25TA7 PO (16:42)
[2017-07-02] MEDS ORDERED: ISOS5TAB2 PO (16:42)
[2017-07-02] MEDS ORDERED: ATOR80TA75 PO (16:42)
--- NOTE | 2017-07-02 16:48 | DS ---
Date/Time of Note Date/Time of Note DATE: 07/02/17 TIME: 16:47 Discharge Summary Admission/Discharge Info Admit Date/Time Jun 27, 2017 at 17:44 Discharge Date/Time Discharge Diagnosis 1. Non-ST elevation myocardial infarction. 2. CAD. Status post coronary artery stenting. 3. Essential hypertension. 4. Dyslipidemia. Patient Condition: Stable Consults 1. Hao Navarrete MD, Cardiology. Procedures 1. On 06/29/2017: Successful PTCA stenting of the proximal and mid right coronary artery from 99% stenosis to no significant residual stenosis using a 3 x 32 mm Synergy and a 3.5 x 12 mm Synergy drug-eluting stent. 2. 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 Hx of Present Illness Chief complaint: Left-sided chest pain This is a 61-year-old male history of coronary disease status post stents who presented as a transfer from [place]. He reported that recently he was in an argument with somebody soon after the argument he started experiencing left- sided chest pressure along with shortness of breath and diaphoresis. He denied any radiation of this pain. He described it as a pressure sensation over his chest. He stated that he felt it very similar to the pain that he experienced when he had a heart attack in 2014. Of note patient stated that he follows with a pecan gatherer as an outpatient and he was awaiting to be scheduled for a cardiac catheterization as he had some "abnormal stress test" within the last few weeks. Allergies: NKDA Indications: See [facility] Hospital Course The patient was admitted to inpatient setting. A cardiology consult was obtained. The patient underwent a 2D echocardiogram that showed ejection fraction of 50% with stage I diastolic dysfunction. The patient was taken to the Bi Analyst on 06/29/2017 and the patient underwent a left heart catheterization with successful PTCA stenting of the proximal and mid right coronary artery from 99% stenosis to no significant residual stenosis using 2 Synergy drug-eluting stents. Status post procedure, the patient was transferred to intensive care unit. 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 Status post procedure, the patient was transferred to intensive care unit again. The patient remained stable throughout the ICU course. The patient was maintained on dual antiplatelet therapy. The patient was also maintained on beta-blockers and OLGA inhibitors along with nitrates. The patient's a statin dosing was increased. The patient is a OLGA inhibitors were later discontinued because of hypotension. The patient was cleared by cardiology to be discharged home and follow-up with his outpatient pecan gatherer. The patient had a stable hospital course. Discharge Instructions 1. Take medications as per prescription. Never stop taking aspirin and Plavix unless you talk to your pecan gatherer. 2. Take a low-cholesterol diet. 3. Activities as tolerated. 4. Follow-up with cardiology (Dr. Landrum) in 2 weeks. 5. Please call 911 or go to the nearest emergency room if you have any chest pain. The patient verbalized understanding of his discharge instructions. At this time I would like to thank all the consultants for seeing the patient, doing the necessary procedures, and providing clinical recommendations. Case discussed with Dr. [facility] Active Scripts Metoprolol Succinate* (Toprol XL*) 25 Mg Tab.sr.24h, 25 MG PO DAILY, #30 TAB Prov:EULALIO RODRÍGUEZ BOOSTER PLANT OPERATOR 07/02/17 Atorvastatin* (Atorvastatin*) 80 Mg Tablet, 80 MG PO DAILY, #30 TAB Prov:EULALIO RODRÍGUEZ BOOSTER PLANT OPERATOR 07/02/17 Reported Medications Aspirin (Aspirin) 81 Mg Chew, 81 MG PO DAILY, TAB.CHEW 06/27/17 Clopidogrel Bisulfate (Clopidogrel) 75 Mg Tablet, 75 MG PO DAILY, #30 TAB 06/27/17 Discontinued Reported Medications Naproxen Sodium* (Naproxen*) 275 Mg Tablet, PO, TAB 06/27/17 Tramadol HCl (Tramadol HCl) 50 Mg Tablet, PO for PAIN, #120 TAB 06/27/17 Sertraline HCl (Zoloft) 20 Mg/1 Ml Oral.conc, PO DAILY 06/27/17 Ranitidine Hcl (HEARTBURN RELIEF) 75 Mg Tablet, PO DAILY, TAB 06/27/17 Tolterodine Tartrate* (Detrol*) 1 Mg Tablet, PO DAILY, #60 TAB 06/27/17 Atorvastatin Calcium (Atorvastatin Calcium) 10 Mg Tablet, PO DAILY, #30 TAB 06/27/17 Metoprolol Tartrate* (Lopressor*) 25 Mg Tab, PO DAILY, #60 TAB 06/27/17 Benazepril Hcl* (Benazepril Hcl*) 5 Mg Tablet, PO DAILY, #30 TAB 06/27/17 Follow-up Plan Follow-up with Dr. Landrum in 2 weeks. Primary Care Provider [facility] Time spent on discharge: > 30 minutes Pending Labs Laboratory Tests Test 07/02/17 06:12 07/02/17 06:13 White Blood Count 10.610^3/ul (4.8-10.8) Red Blood Count 4.7810^6/ul (4.70-6.10) Hemoglobin 12.6g/dl (14.0-18.0) Hematocrit 37.9% (42.0-52.0) Mean Corpuscular Volume 79.3fl (82.0-101.0) Mean Corpuscular Hemoglobin 26.4pg (29.0-33.0) Mean Corpuscular Hemoglobin Concent 33.2g/dl (32.0-37.0) Red Cell Distribution Width 14.2% (11.5-14.5) Platelet Count 00109^3/UL (140-415) Mean Platelet Volume 10.7fl (7.4-10.4) Neutrophils % 69.8% (39.0-77.0) Lymphocytes % 21.5% (15.0-51.0) Monocytes % 7.9% (0.0-11.0) Eosinophils % 0.1% (0.0-7.0) Basophils % 0.3% (0.0-2.0) Nucleated Red Blood Cells % 0.0/100WBC (0.0-0.0) Neutrophils # (Manual) 710^3/ul (1.7-7.5) Lymphocytes # 2.310^3/ul (0.8-2.9) Monocytes # 0.810^3/ul (0.3-0.9) Eosinophils # 0.010^3/ul (0.0-0.5) Basophils # 0.010^3/ul (0.0-0.1) Nucleated Red Blood Cells # 0.010^3/ul (0.0-0.0) Sodium Level 141mmol/L (135-144) Potassium Level 4.0mmol/L (3.5-5.1) Chloride Level 104mmol/L (97-110) Carbon Dioxide Level 24mmol/L (21-31) Anion Gap 17 (8-16) Blood Urea Nitrogen 15mg/dl (7-20) Creatinine 0.78mg/dl (0.61-1.24) Glucose Level 79mg/dl (70-220) Calcium Level 8.6mg/dl (8.4-10.2) Total Bilirubin 0.4mg/dl (0.2-1.3) Direct Bilirubin 0.00mg/dl (0.00-0.20) Indirect Bilirubin 0.4mg/dl (0-1.1) Aspartate Amino Transf (AST/SGOT) 25IU/L (15-46) Alanine Aminotransferase (ALT/SGPT) 34IU/L (13-69) Alkaline Phosphatase 63IU/L (42-121) Creatine Kinase 89IU/L (23-200) Creatine Kinase Index 4.0 Creatinine Kinase MB (Mass) 3.56ng/ml (0.0-2.4) Troponin I 1.330ng/ml (0.00-0.12) Total Protein 6.3g/dl (6.1-8.1) Albumin 3.4g/dl (3.3-4.9) Globulin 2.90g/dl (1.3-3.2) Albumin/Globulin Ratio 1.17 EULALIO RODRÍGUEZ NP Jul 02, 2017 16:48
--- NOTE | 2017-07-02 21:11 | PN ---
Date/Time of Note Date/Time of Note LATE ENTRY DATE: 07/01/17 Assessment/Plan VTE Prophylaxis VTE Prophylaxis Intervention: heparin Lines/Catheters IV [facility]from [facility] SALINE LOCK Urinary Cath still in place: No Assessment/Plan Chief Complaint/Hosp Course Assessment and plan 1. Chest pain. troponins negative. Per echocardiogram patient noted with EF of 50% with stage I diastolic dysfunction. Patient status post left heart cath with stent to RCA (noted with 99% occlusion of artery). Patient tolerated well. Patient again status post PCI and angioplasty of distal LCx (July 02, 2017). Continue postop care 3. History of CAD. Continue on aspirin and statin as well as OLGA inhibitor and beta-melony. Continue telemetry monitoring. 3. History of hypertension. Continue antihypertensives and adjust needed 4. Dyslipidemia. Continue on statin medication Disposition and plan: Continue ICU monitoring and optimization of cardiovascular medications. Anticipate discharge within the next 24 hours if medically stable Discussed plan of care with Dr. Hollingsworth Problems: Subjective 24 Hr Interval Summary Free Text/Dictation Patient status post PCI. Denies any chest pain or shortness of breath at this time. Exam/Review of Systems Vital Signs Vitals Vital Signs Date Time Temp Pulse Resp B/P Pulse Ox O2 Delivery O2 Flow Rate FiO2 07/02/17 17:00 98.6 71 19 101/69 100 Room Air 07/01/17 11:15 2.0 Intake and Output 07/01/17 07/01/17 07/02/17 15:00 23:00 07:00 Intake Total 152 ml 900 ml 300 ml Output Total 1250 ml 1220 ml 830 ml Balance -1098 ml -320 ml -530 ml Exam Constitutional: alert, oriented Psych: nl mood/affect Neck: supple, No jvd Respiratory: clear to auscultation, normal air movement Cardiovascular: regular rate and rhythm Gastrointestinal: non-tender, soft Musculoskeletal: nl extremities to inspection Neurological: VEHICLE OPERATOR TECHNICIAN II-XII intact, nl mental status, nl speech Results Result Diagram: 07/02/17 0612 07/02/17 0613 Results 24 hrs Laboratory Tests Test 07/02/17 06:12 07/02/17 06:13 White Blood Count 10.6 Red Blood Count 4.78 Hemoglobin 12.6 L Hematocrit 37.9 L Mean Corpuscular Volume 79.3 L Mean Corpuscular Hemoglobin 26.4 L Mean Corpuscular Hemoglobin Concent 33.2 Red Cell Distribution Width 14.2 Platelet Count 167 Mean Platelet Volume 10.7 H Neutrophils % 69.8 Lymphocytes % 21.5 Monocytes % 7.9 Eosinophils % 0.1 Basophils % 0.3 Nucleated Red Blood Cells % 0.0 Neutrophils # (Manual) 7 Lymphocytes # 2.3 Monocytes # 0.8 Eosinophils # 0.0 Basophils # 0.0 Nucleated Red Blood Cells # 0.0 Sodium Level 141 Potassium Level 4.0 Chloride Level 104 Carbon Dioxide Level 24 Anion Gap 17 H Blood Urea Nitrogen 15 Creatinine 0.78 Glucose Level 79 Calcium Level 8.6 Total Bilirubin 0.4 Direct Bilirubin 0.00 Indirect Bilirubin 0.4 Aspartate Amino Transf (AST/SGOT) 25 Alanine Aminotransferase (ALT/SGPT) 34 Alkaline Phosphatase 63 Creatine Kinase 89 Creatine Kinase Index 4.0 Creatinine Kinase MB (Mass) 3.56 H Troponin I 1.330 *H Total Protein 6.3 Albumin 3.4 Globulin 2.90 Albumin/Globulin Ratio 1.17 ARACELI ODOM Jul 02, 2017 21:11
[2017-07-03] MEDS ORDERED: METOPROLOL (XL) 25 MG TAB PO SCH (09:00)
== END 2017-07-02 19:04 | disposition home or self-care (01) | DRG 247 ==
LOC: E/R 17:30 → EDSTATUS 17:30 → MS4 17:44 → ICU 06-29 17:41 → MS4 06-30 10:38 → ICU 07-01 07:10 → MS4 07-01 13:00 → ICU 07-01 14:51
PROVIDERS: ADMIT Internal Medicine; ATTEND Internal Medicine
PROC: 4A023N7 Measurement of Cardiac Sampling and Pressure, Left Heart, Percutaneous Approach (ICD-10-PCS; 2017-06-29)
PROC: B2011ZZ Plain Radiography of Multiple Coronary Arteries using Low Osmolar Contrast (ICD-10-PCS; principal; 2017-06-29 16:00)
PROC: 027135Z Dilation of Coronary Artery, Two Arteries with Two Drug-eluting Intraluminal Devices, Percutaneous Approach (ICD-10-PCS; 2017-06-29 16:00)
PROC: 02713ZZ Dilation of Coronary Artery, Two Arteries, Percutaneous Approach (ICD-10-PCS; 2017-07-01)
PROC: 02C13ZZ Extirpation of Matter from Coronary Artery, Two Arteries, Percutaneous Approach (ICD-10-PCS; 2017-07-01)
DX: I21.4 Non-ST elevation (NSTEMI) myocardial infarction (principal); I25.82 Chronic total occlusion of coronary artery; I25.10 Atherosclerotic heart disease of native coronary artery without angina pectoris; I10 Essential (primary) hypertension; I25.2 Old myocardial infarction; Z95.5 Presence of coronary angioplasty implant and graft; E78.5 Hyperlipidemia, unspecified
CPT/HCPCS: 71020; 80053; 80061; 82550; 82553; 83036; 83735; 84100; 84443; 84484; 85025; 85610; 87081; 92920; 92921; 92982; 93005; 93306; 93454; C1725; C1757; C1769; C1874; C1887; C1894; C9600; J0461; J0583; J1200; J1644; J2250; J2270; J2405; J2930; J3010; J7030; J7512; Q9967

== ENCOUNTER 2017-09-05 15:07 | Emergency (ER) | payer OTHER ==
[~2017-09-05] VITALS: Ht 182.9 cm; Wt 99.5 kg
[~2017-09-05 15:07] MED LIST: ASPI81TA3 PO; ATOR80TA75 PO; CLOP75TA27 PO; METO-335 PO
[2017-09-05 15:10] VITALS: Ht 182.9 cm; Wt 99.5 kg
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
== END 2017-09-05 16:39 | disposition home or self-care (01) ==
LOC: FTE 15:07
DX: S31.23XA Puncture wound without foreign body of penis, initial encounter (principal); I25.10 Atherosclerotic heart disease of native coronary artery without angina pectoris; X58.XXXA Exposure to other specified factors, initial encounter; Y92.9 Unspecified place or not applicable; Z79.82 Long term (current) use of aspirin
CPT/HCPCS: 12001; Z7502

== ENCOUNTER 2019-02-13 02:54 | Inpatient (IN) | payer OTHER ==
[~2019-02-13] VITALS: Ht 185.4 cm; Wt 100.6 kg
[2019-02-13] VITALS (9 sets, daily range): BP systolic 100–124; BP diastolic 58–79; PULSE 62–72; RESP 18; Ht 185.4 cm; Wt 100.6 kg
[~2019-02-13 02:54] MED LIST changes: +ASPI-831 PO; -ASPI81TA3 PO; +ATOR-2 PO; -ATOR80TA75 PO
[2019-02-13] MEDS ORDERED: ISOS60TA PO (05:40)
[2019-02-13] MEDS ORDERED: RANI150T35 PO (05:40)
[2019-02-13] MEDS ORDERED: FLUT16SP17 NASAL (05:40)
[2019-02-13] MEDS ORDERED: TOLT4CAP PO (05:40)
[2019-02-13] MEDS ORDERED: TRAM50TA2 PO (05:40)
[2019-02-13] MEDS ORDERED: ENAL10TA PO (05:40)
[2019-02-13] MEDS ORDERED: SERT50TA PO (05:40)
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
[2019-02-13] MEDS ORDERED: NITROGLYCERIN (SL) 0.4 MG TAB SL PRN (06:30)
[2019-02-13] MEDS ORDERED: ALBUTEROL/IPRATROPIUM (NEB) 3 ML AMP HHN PRN (06:30)
[2019-02-13] MEDS ORDERED: NACL 0.9% 3 ML SYG IV SCH (06:30)
[2019-02-13] MEDS ORDERED: ONDANSETRON 4 MG INJ IV PRN (06:30)
[2019-02-13] MEDS ORDERED: ACETAMINOPHEN 325 MG TAB PO PRN (06:30)
[2019-02-13] MEDS ORDERED: ALPRAZOLAM 1 MG TAB PO ONE ×2 (08:00)
[2019-02-13] MEDS: RANITIDINE 150 MG TAB PO SCH ×2 (08:47→20:13)
[2019-02-13] MEDS: ASPIRIN 81 MG TAB PO SCH (08:47)
[2019-02-13] MEDS: ATORVASTATIN 80 MG TAB PO SCH (08:47)
[2019-02-13] MEDS: TOLTERODINE (SR) 4 MG CAP PO SCH (08:47)
[2019-02-13] MEDS: METOPROLOL (XL) 25 MG TAB PO SCH (08:48)
[2019-02-13] MEDS: ISOSORBIDE MONONITRATE(SR)60 MG TAB PO SCH (08:48)
[2019-02-13] MEDS: SERTRALINE 50 MG TAB PO SCH (08:48)
[2019-02-13] MEDS: ENALAPRIL 10 MG TAB PO SCH ×2 (08:49→20:13)
[2019-02-13] MEDS: FLUTICASONE 0.05% 16 GM NAS SPRAY NASAL SCH (08:49)
[2019-02-13] MEDS ORDERED: CLOPIDOGREL 75 MG TAB PO SCH (09:00)
--- NOTE | 2019-02-13 09:35 | QN ---
Documentation Comment 63-year-old male who was admitted v for chest pain rule out and is currently being monitored in telemetry. Treatment plan as outlined by admitting MD. Cardiology and GI notified. Continue current supportive care, further interventions per clinical course. JOANA KELLY Feb 13, 2019 09:35
[2019-02-13] MEDS: traMADol 50 MG TAB PO PRN (20:13)
--- NOTE | 2019-02-13 20:57 | CONS ---
DATE OF ADMISSION: 02/13/2019 DATE OF CONSULTATION: TYPE OF CONSULTATION: Gastroenterology. Dear Dr. Kelly: Thank you for asking me to see Mr. BeltranJr. in GI consultation. HISTORY OF PRESENT ILLNESS: As you know, the patient is a 63-year-old -[place] gentleman who was admitted to the hospital because of substernal pain, discomfort and feeling of warmth in his bod y and shortness of breath. It is considered that he may have a myocardial infarction. However from the GI standpoint, consultation is requested to evaluate the GI causes. The patient denies having any heartburn, abdominal pain, dysphagia. The patient has no gastrointesti nal complaints of any significance at this time. PAST MEDICAL HISTORY: He had 3 heart attacks. Coronary artery disease. He has history of rectal bl eeding in the past. He was supposed to have evaluation for colonoscopy in my office, but he ended up in the hospital. Other medical problems include essentially ones mentioned in the chart including g astritis, insomnia, anxiety. MEDICATIONS PRIOR TO THIS ADMISSION: Include: 1. Clopidogrel. 2. Atorvastatin. 3. Enalapril. 4. Isosorbide. 5. Toprol. 6. Aspirin. 7. Zoloft. 8. Tramadol. 9. Fluticasone propionate. 10. Zantac. 11. Detrol. PHYSICAL EXAMINATION: GENERAL: The patient is 63-year-old -[place] gentleman who at this time is well built. VITAL SIGNS: He is afebrile. CARDIOVASCULAR: Normal heart sounds. RESPIRATORY: Normal breath sounds. ABDOMEN: Showed unremarkable findings. VITAL SIGNS: Blood pressure is 100/58. LABORATORY WORKUP: Potassium 4.0. AST 21, ALT 29, alkaline phosphatase 62. Troponin 0.012. Albumi n 3.2. Triglycerides 47, HDL 28. DIAGNOSTIC DATA: Chest x-ray is grossly unremarkable. Please review the report. CLINICAL IMPRESSION: From the gastrointestinal standpoint, he does not seem to have a significant ga strointestinal problems except he has history of rectal bleeding although it does not seem to be acti ve problem at this time, history of substernal pain, shortness of breath and sweating. Obviously, my ocardial infarction needs to be ruled out, which is being worked up. PLAN: Stabilize the patient and we will do further GI workup when the patient is stable. Once again, Dr. Kelly, thank you for this consultation. Dictated By: CONCETTA RAMOS MD NC/NTS Conf#: [id number] DID#: [id number] CC: INDU JETER MD; JOANA KELLY MD;*EndCC*
[2019-02-13] MEDS ORDERED: ALPRAZOLAM 0.25 MG TAB PO ONE (23:00)
[2019-02-13] MEDS: ZOLPIDEM 5 MG TAB PO PRN (23:02)
[2019-02-14] VITALS (10 sets, daily range): BP systolic 92–118; BP diastolic 50–69; PULSE 71–111; RESP 16–18
[2019-02-14] MEDS: SERTRALINE 50 MG TAB PO SCH (09:10)
[2019-02-14] MEDS: ISOSORBIDE MONONITRATE(SR)60 MG TAB PO SCH (09:10)
[2019-02-14] MEDS: TOLTERODINE (SR) 4 MG CAP PO SCH (09:11)
[2019-02-14] MEDS: ENALAPRIL 10 MG TAB PO SCH ×2 (09:11→20:03)
[2019-02-14] MEDS: METOPROLOL (XL) 25 MG TAB PO SCH (09:11)
[2019-02-14] MEDS: ATORVASTATIN 80 MG TAB PO SCH (09:11)
[2019-02-14] MEDS: RANITIDINE 150 MG TAB PO SCH ×2 (09:11→20:03)
[2019-02-14] MEDS: ASPIRIN 81 MG TAB PO SCH (09:12)
[2019-02-14] MEDS: FLUTICASONE 0.05% 16 GM NAS SPRAY NASAL SCH (09:12)
--- NOTE | 2019-02-14 10:39 | RADRPT ---
Echocardiogram Report Patient Name: SANDY WATTERSPatient ID: [id number] : 1955 (63y 4m)Study Date: 02/13/2019 7:33:35 AM Gender: MAccession #: [id number] Tech: Avery Gandara [facility] Location: [facility] Ref.Physician: INDU JETER Height(Cm): BSA: Weight(Kg): Quality: AdequateAccount #: Procedures: Echocardiographic Report: Transthoracic echocardiogram with complete 2D, M-Mode, and doppler examination. Indications: Chest Pain. Measurements: 2D/M Mode Doppler Measurement Value Normal Range Measurement Value Normal Range LVIDd 2D 3.8 [ 4.2 - 5.8 ] cm AV Peak Edmond 1.1 [ 100.0 - 170.0 ] cm/sec LVIDs 2D 2.3 [ 2.5 - 4.0 ] cm AV Peak PG 5.0 [ 2.0 - 9.0 ] mmHg LVPWd 2D 1.4 [ 0.6 - 1.0 ] cm LVOT Peak Edmond 0.9 [ 70.0 - 110.0 ] cm/sec IVSd 2D 1.4 [ 0.6 - 1.0 ] cm LVOT Peak PG 3.0 [ 2.0 - 6.0 ] mmHg AoR Diam 2D 3.8 [ 2.6 - 3.4 ] cm MV E Peak Edmond 0.6 [ 60.0 - 130.0 ] cm/sec EDV 2D 61.2 [ 62.0 - 150.0 ] ml MV A Peak Edmond 0.7 [ 100.0 - 120.0 ] cm/sec ESV 2D 18.7 [ 21.0 - 61.0 ] ml MV E/A 0.8 [ 0.8 - 1.5 ] ratio EF 2D 69.4 [ 52.0 - 72.0 ] percent MV Decel Time 239 [ 104 - 258 ] msec LA Dimen 2D 3.2 [ 3.0 - 4.0 ] cm Lat E` Edmond 0.1 [ 10.0 - 15.0 ] cm/sec Lateral E/E` 6.6 [ 1.0 - 2.0 ] ratio MV E/A 0.8 [ 0.8 - 1.5 ] ratio Findings: Left Ventricle: Normal left ventricular cavity size. Mild concentric left ventricular hypertrophy. Ejection fraction is visually estimated at 60 %. Tissue Doppler/Mitral Doppler indices are consistent with impaired relaxation (Stage I diastolic dysfunction). Multiple segmental wall motion abnormalities. Right Ventricle: Normal right ventricular size. Normal right ventricular systolic function. Left Atrium: The left atrium is normal in size. Right Atrium: The right atrium is normal in size. Mitral Valve: Normal appearance and function of the mitral valve with trace physiologic regurgitation. Aortic Valve: No significant aortic stenosis or insufficiency. Aortic cusps appear mildly calcified. Tricuspid Valve: Normal appearance of the tricuspid valve. Unable to obtain RVSP due to minimal presence of tricuspid regurgitation. Pulmonic Valve: Pulmonic valve not well visualized. Pericardium: Normal pericardium with no significant pericardial effusion. Aorta: Normal aortic root. IVC: Normal size and normal respiratory collapse consistent with normal right atrial pressure. Conclusions: Normal left ventricular cavity size. Mild concentric left ventricular hypertrophy. Ejection fraction is visually estimated at 60 %. Tissue Doppler/Mitral Doppler indices are consistent with impaired relaxation (Stage I diastolic dysfunction). Multiple segmental wall motion abnormalities. Normal appearance and function of the mitral valve with trace physiologic regurgitation. No significant aortic stenosis or insufficiency. Aortic cusps appear mildly calcified. Normal appearance of the tricuspid valve. Unable to obtain RVSP due to minimal presence of tricuspid regurgitation. Electronically Signed By: Hao Navarrete 2019-02-14 10:38:50 PDT
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
[2019-02-14] MEDS: traMADol 50 MG TAB PO PRN (18:50)
[2019-02-14] MEDS ORDERED: ALPRAZOLAM 0.25 MG TAB PO ONE (21:30)
[2019-02-14] MEDS: ZOLPIDEM 5 MG TAB PO PRN (21:45)
[2019-02-15] VITALS (9 sets, daily range): BP systolic 102–119; BP diastolic 58–67; PULSE 74–99; RESP 16–19
[2019-02-15] MEDS: ATORVASTATIN 80 MG TAB PO SCH (09:27)
[2019-02-15] MEDS: RANITIDINE 150 MG TAB PO SCH ×2 (09:27→20:21)
[2019-02-15] MEDS: FLUTICASONE 0.05% 16 GM NAS SPRAY NASAL SCH (09:27)
[2019-02-15] MEDS: ISOSORBIDE MONONITRATE(SR)60 MG TAB PO SCH (09:28)
[2019-02-15] MEDS: ASPIRIN 81 MG TAB PO SCH (09:28)
[2019-02-15] MEDS: TOLTERODINE (SR) 4 MG CAP PO SCH (09:28)
[2019-02-15] MEDS: SERTRALINE 50 MG TAB PO SCH (09:29)
[2019-02-15] MEDS: ENALAPRIL 10 MG TAB PO SCH ×2 (09:29→20:21)
[2019-02-15] MEDS: METOPROLOL (XL) 25 MG TAB PO SCH (09:29)
[2019-02-15] MEDS: traMADol 50 MG TAB PO PRN ×2 (10:55→17:29)
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
--- NOTE | 2019-02-15 14:27 | CONS ---
Assessment/Plan Assessment/Plan Hospital Course (Demo Recall) Chest pain/possible unstable angina: Trops negative, no acute EKG changes. Chest pain free now. Recent abnormal stress test with plan for outpt cardiac cath but now with rest angina. Appropriate for inpt workup CAD/WI: s/p multiple prior stents most recently 06/2017 with complex PCI of RCA and staged POBA of Cx/OM Prior rectal bleeding: most recently >2 yrs ago. Seen by GI. No workup necessary at this time as no symptoms, no bleeding, no anemia HTN HL -pt prefers Dr. Navarrete to do the cardiac cath as he was involved in the prior two complex PCIs. Dr. Navarrete has been notified and will arrange cardiac cath -ASA -lipitor -increase to metoprolol succinate 50mg daily -enalapril -imdur 60mg daily. Consultation Date/Type/Reason Admit Date/Time Feb 13, 2019 at 05:21 Date of Consultation: Feb 15, 2019 Type of Consult Cardiology Reason for Consultation chest pain Requesting Provider: JOANA KELLY Date/Time of Note DATE: 02/15/19 TIME: 14:25 Hx of Present Illness 63 yo M with a h/o CAD/WI s/p multiple prior stents most recently 06/2017 with complex PCI of RCA and staged POBA of Cx/OM, prior rectal bleeding most recently >2 yrs ago, HTN, HL, who presented with chest pain. He has ruled out with negative troponins. He notes that since his PCI 07/01, he has been having rare episodes of chest pressure while going up inclines but not with normal daily activity or rest. The day of admission, he was standing outside his home when he had neck and chest pressure similar to his prior [place]. He apparently had a stress test with his crepe sole wire brusher, Dr. Landrum 09/01 and was recommended to have a cath but it got delayed. I spoke with Dr. Landrum who confirmed the pt had LAD territory jac-infarct ischemia with preserved EF. Echo here shows normal EF. No further chest pain. per hPI Past Medical History per hPI Medical History: other (See HPI) Home Meds Active Scripts Metoprolol Succinate* (Toprol XL*) 25 Mg Tab.sr.24h, 25 MG PO DAILY, #30 TAB Prov:EULALIO RODRÍGUEZ FL[employer] 07/02/17 Atorvastatin* (Atorvastatin*) 80 Mg Tablet, 80 MG PO DAILY, #30 TAB Prov:EULALIO RODRÍGUEZ FL[employer]DER 07/02/17 Reported Medications Tramadol HCl (Tramadol HCl) 50 Mg Tablet, 50 MG PO Q6H PRN for PAIN, #120 TAB 02/13/19 Tolterodine Tartrate* (Detrol LA*) 4 Mg Cap.sr.24h, 4 MG PO DAILY, #30 CAP 02/13/19 Sertraline Hcl* (Zoloft*) 50 Mg Tablet, 50 MG PO DAILY, #30 TAB 02/13/19 Ranitidine Hcl* (Zantac*) 150 Mg Tablet, 150 MG PO BID, #60 TAB 02/13/19 Isosorbide Mononitrate* (Isosorbide Mononitrate*) 60 Mg Tab.er.24h, 60 MG PO DAILY, TAB 02/13/19 Fluticasone Propionate* (Fluticasone Propionate* Nasal) 50 Mcg/[place] - 16 Gm [place].susp, 1 SPRAY NASAL DAILY, #1 BOTTLE TO EACH NOSTRIL 02/13/19 Enalapril Maleate* (Enalapril Maleate*) 10 Mg Tablet, 10 MG PO BID, TAB 02/13/19 Aspirin (Aspirin) 81 Mg Chew, 81 MG PO DAILY, TAB.CHEW 06/27/17 Clopidogrel Bisulfate (Clopidogrel) 75 Mg Tablet, 75 MG PO DAILY, #30 TAB 06/27/17 Medications Current Medications IV Flush (NS 3 ml) 3 ml PER PROTOCOL IV ; Start 02/13/19 at 06:30 Ondansetron HCl (Zofran Inj) 4 mg Q6H PRN IV NAUSEA/VOMITING; Start 02/13/19 at 06:30 Nitroglycerin (Nitroglycerin (Sl Tab) 0.4 Mg) 1 tab Q5M PRN SL .CHEST PAIN; St art 02/13/19 at 06:30 Acetaminophen (Tylenol Tab) 650 mg Q6H PRN PO .PAIN 1-3 OR TEMP; Start 02/13/19 at 06:30 Albuterol/ Ipratropium (Duoneb) 3 ml Q2H RESP THERAPY PRN HHN SHORTNESS OF BREATH; Start 02/13/19 at 06:30 Aspirin (Aspirin) 81 mg DAILY PO Last administered on 02/15/19at 09:28; Admin Dose 81 MG; Start 02/13/19 at 09:00 Atorvastatin Calcium (Lipitor) 80 mg DAILY PO Last administered on 02/15/19 09:27; Admin Dose 80 MG; Start 02/13/19 at 09:00 Enalapril Maleate (Vasotec) 10 mg BID PO Last administered on 02/15/19 09:29; Admin Dose 10 MG; Start 02/13/19 at 09:00 Fluticasone Propionate (Flonase 0.05% Nasal) 1 spray DAILY NASAL Last administered on 02/15/19 09:27; Admin Dose 1 SPRAY; Start 02/13/19 at 09:00 Isosorbide Mononitrate (Imdur) 60 mg DAILY PO Last administered on 02/15/19 09:28; Admin Dose 60 MG; Start 02/13/19 at 09:00 Metoprolol Succinate (Toprol Xl) 25 mg DAILY PO Last administered on 02/15/19 09:29; Admin Dose 25 MG; Start 02/13/19 at 09:00 Ranitidine HCl (Zantac) 150 mg BID PO Last administered on 02/15/19 09:27; Admin Dose 150 MG; Start 02/13/19 at 09:00 Sertraline HCl (Zoloft) 50 mg DAILY PO Last administered on 02/15/19 09:29; Admin Dose 50 MG; Start 02/13/19 at 09:00 Tolterodine Tartrate (Detrol La) 4 mg DAILY PO Last administered on 02/15/19 09:28; Admin Dose 4 MG; Start 02/13/19 at 09:00 Tramadol HCl (Ultram) 50 mg Q6H PRN PO PAIN Last administered on 02/15/19 10:55; Admin Dose 50 MG; Start 02/13/19 at 06:30 Zolpidem Tartrate (Ambien) 10 mg HS PRN PO INSOMNIA Last administered on 02/14/19 21:45; Admin Dose 10 MG; Start 02/13/19 at 08:00 Allergies: Coded Allergies: famotidine (Verified Adverse Reaction, Intermediate, "HEADACHE", 06/30/17) headache Past Surgical History Past Surgical Hx: other (Cardiac stent) Social History Alcohol Use: none Smoking Status: Never smoker Drug Use: none Exam/Review of Systems Exam Vitals Vital Signs Date Temp Pulse Resp B/P (MAP) Pulse Ox O2 O2 Flow FiO2 Time Delivery Rate 02/15/19 81 12:00 02/15/19 97.5 16 110/64 95 11:26 (79) 02/13/19 Room Air 19:18 Intake and Output 02/14/19 02/14/19 02/15/19 1515:00 23:00 07:00 IntakeIntake Total 950 ml 900 ml OutputOutput Total 800 ml 950 ml BalanceBalance 150 ml -50 ml Constitutional: alert, oriented Psych: no complaints, nl mood/affect Head: normocephalic, atraumatic Neck: supple; No jvd Respiratory: clear to auscultation; No crackles/rales Cardiovascular: regular rate and rhythm; No edema Gastrointestinal: soft, non-tender; No distended Neurological: nl mental status, nl speech Results Result Diagram: 02/15/19 0527 02/15/19 0527 Results 24hrs Laboratory Tests Test 02/15/19 05:27 White Blood Count 6.8 Red Blood Count 5.29 Hemoglobin 13.9 L Hematocrit 43.3 Mean Corpuscular Volume 81.9 L Mean Corpuscular Hemoglobin 26.3 L Mean Corpuscular Hemoglobin Concent 32.1 Red Cell Distribution Width 13.2 Platelet Count 187 Mean Platelet Volume 9.9 Immature Granulocytes % 0.400 Neutrophils % 58.6 Lymphocytes % 27.6 Monocytes % 11.1 H Eosinophils % 1.9 Basophils % 0.4 Nucleated Red Blood Cells % 0.0 Immature Granulocytes # 0.030 Neutrophils # 4.0 Lymphocytes # 1.9 Monocytes # 0.8 Eosinophils # 0.1 Basophils # 0.0 Nucleated Red Blood Cells # 0.0 Sodium Level 137 Potassium Level 4.2 Chloride Level 103 Carbon Dioxide Level 25 Anion Gap 9 Blood Urea Nitrogen 14 Creatinine 0.93 Est Glomerular Filtrat Rate mL/min > 60 Glucose Level 83 Calcium Level 8.9 Magnesium Level 1.9 Free Thyroxine 0.83 Medications Medication Current Medications IV Flush (NS 3 ml) 3 ml PER PROTOCOL IV ; Start 02/13/19 at 06:30 Ondansetron HCl (Zofran Inj) 4 mg Q6H PRN IV NAUSEA/VOMITING; Start 02/13/19 at 06:30 Nitroglycerin (Nitroglycerin (Sl Tab) 0.4 Mg) 1 tab Q5M PRN SL .CHEST PAIN; Start 02/13/19 at 06:30 Acetaminophen (Tylenol Tab) 650 mg Q6H PRN PO .PAIN 1-3 OR TEMP; Start 02/13/19 at 06:30 Albuterol/ Ipratropium (Duoneb) 3 ml Q2H RESP THERAPY PRN HHN SHORTNESS OF BREATH; Start 02/13/19 at 06:30 Aspirin (Aspirin) 81 mg DAILY PO Last administered on 02/15/19 09:28; Admin Dose 81 MG; Start 02/13/19 at 09:00 Atorvastatin Calcium (Lipitor) 80 mg DAILY PO Last administered on 02/15/19 09:27; Admin Dose 80 MG; Start 02/13/19 at 09:00 Enalapril Maleate (Vasotec) 10 mg BID PO Last administered on 02/15/19 09:29; Admin Dose 10 MG; Start 02/13/19 at 09:00 Fluticasone Propionate (Flonase 0.05% Nasal) 1 spray DAILY NASAL Last administered on 02/15/19 09:27; Admin Dose 1 SPRAY; Start 02/13/19 at 09:00 Isosorbide Mononitrate (Imdur) 60 mg DAILY PO Last administered on 02/15/19 09:28; Admin Dose 60 MG; Start 02/13/19 at 09:00 Metoprolol Succinate (Toprol Xl) 25 mg DAILY PO Last administered on 02/15/19 09:29; Admin Dose 25 MG; Start 02/13/19 at 09:00 Ranitidine HCl (Zantac) 150 mg BID PO Last administered on 02/15/19 09:27; Admin Dose 150 MG; Start 02/13/19 at 09:00 Sertraline HCl (Zoloft) 50 mg DAILY PO Last administered on 02/15/19 09:29; Admin Dose 50 MG; Start 02/13/19 at 09:00 Tolterodine Tartrate (Detrol La) 4 mg DAILY PO Last administered on 02/15/19 09:28; Admin Dose 4 MG; Start 02/13/19 at 09:00 Tramadol HCl (Ultram) 50 mg Q6H PRN PO PAIN Last administered on 02/15/19 10:55; Admin Dose 50 MG; Start 02/13/19 at 06:30 Zolpidem Tartrate (Ambien) 10 mg HS PRN PO INSOMNIA Last administered on 02/14/19at 21:45; Admin Dose 10 MG; Start 02/13/19 at 08:00 MICHAEL SIMS Feb 15, 2019 14:27
[2019-02-15] MEDS: ZOLPIDEM 5 MG TAB PO PRN (22:03)
[2019-02-16] VITALS (12 sets, daily range): BP systolic 91–116; BP diastolic 50–66; PULSE 65–81; RESP 17–20
[2019-02-16] MEDS: TOLTERODINE (SR) 4 MG CAP PO SCH (09:10)
[2019-02-16] MEDS: ISOSORBIDE MONONITRATE(SR)60 MG TAB PO SCH (09:10)
[2019-02-16] MEDS: ATORVASTATIN 80 MG TAB PO SCH (09:10)
[2019-02-16] MEDS: ASPIRIN 81 MG TAB PO SCH (09:10)
[2019-02-16] MEDS: RANITIDINE 150 MG TAB PO SCH ×2 (09:10→21:27)
[2019-02-16] MEDS: ENALAPRIL 10 MG TAB PO SCH ×2 (09:11→21:00)
[2019-02-16] MEDS: METOPROLOL (XL) 25 MG TAB PO SCH (09:12)
[2019-02-16] MEDS: SERTRALINE 50 MG TAB PO SCH (09:12)
[2019-02-16] MEDS: FLUTICASONE 0.05% 16 GM NAS SPRAY NASAL SCH (09:13)
--- NOTE | 2019-02-16 09:17 | CONS ---
Consult Date/Type/Reason Admit Date/Time Feb 15, 2019 at 15:11 Initial Consult Date 02/15/19 Type of Consultation: cv Requesting Provider: JOANA KELLY Date/Time of Note DATE: 02/16/19 TIME: 09:14 Subjective Interventional cardiology follow-up progress note Subjective: Discussed with the staff and multiple physicians. Patient on record including angiogram that was done 2017 by myself was personally reviewed. Patient with no chest pain or pressure now but has reported that up in heavy activity and going all pills in the past few months has been getting exertional chest discomfort. Discussed with Dr. Jain . Patient has asked for me to perform his PCI apparently. Objective: General: no acute distress HEENT: NC/AT. pupils are equal. round. NECK: NO JVD. no stridor. CV: RRR. systolic murmur; no gallop or rubs. PULM: no wheezing or rhonchi. GI: SOFT, NT, ND, no rebound or guarding Extremity: trace B/L LE edema. no clubbing. neuro: awake and alert, OX3. Psych: calm and pleasant rectal: deferred : normal Objective Vitals Vital Signs Date Temp Pulse Resp B/P (MAP) Pulse Ox O2 O2 Flow FiO2 Time Delivery Rate 02/16/19 81 08:22 02/16/19 98.1 19 106/63 99 07:47 (77) 02/13/19 Room Air 19:18 Intake and Output 02/15/19 02/15/19 02/16/19 1515:00 23:00 07:00 IntakeIntake Total 220 ml BalanceBalance 220 ml Results/Medications Result Diagram: 02/16/19 0542 02/16/19 0542 Results 24 hrs Laboratory Tests Test 02/16/19 05:42 White Blood Count 6.0 Red Blood Count 5.53 Hemoglobin 14.5 Hematocrit 45.4 Mean Corpuscular Volume 82.1 Mean Corpuscular Hemoglobin 26.2 L Mean Corpuscular Hemoglobin Concent 31.9 L Red Cell Distribution Width 13.1 Platelet Count 187 Mean Platelet Volume 10.0 Immature Granulocytes % 0.500 H Neutrophils % 55.9 Lymphocytes % 30.0 Monocytes % 10.6 Eosinophils % 2.5 Basophils % 0.5 Nucleated Red Blood Cells % 0.0 Immature Granulocytes # 0.030 Neutrophils # 3.4 Lymphocytes # 1.8 Monocytes # 0.6 Eosinophils # 0.2 Basophils # 0.0 Nucleated Red Blood Cells # 0.0 Sodium Level 137 Potassium Level 4.8 Chloride Level 104 Carbon Dioxide Level 26 Anion Gap 7 Blood Urea Nitrogen 12 Creatinine 0.87 Est Glomerular Filtrat Rate mL/min > 60 Glucose Level 87 Calcium Level 9.4 Home Meds Active Scripts Metoprolol Succinate* (Toprol XL*) 25 Mg Tab.sr.24h, 25 MG PO DAILY, #30 TAB Prov:EULALIO RODRÍGUEZ [employer] 07/02/17 Atorvastatin* (Atorvastatin*) 80 Mg Tablet, 80 MG PO DAILY, #30 TAB Prov:EULALIO RODRÍGUEZ [employer] 07/02/17 Reported Medications Tramadol HCl (Tramadol HCl) 50 Mg Tablet, 50 MG PO Q6H PRN for PAIN, #120 TAB 02/13/19 Tolterodine Tartrate* (Detrol LA*) 4 Mg Cap.sr.24h, 4 MG PO DAILY, #30 CAP 02/13/19 Sertraline Hcl* (Zoloft*) 50 Mg Tablet, 50 MG PO DAILY, #30 TAB 02/13/19 Ranitidine Hcl* (Zantac*) 150 Mg Tablet, 150 MG PO BID, #60 TAB 02/13/19 Isosorbide Mononitrate* (Isosorbide Mononitrate*) 60 Mg Tab.er.24h, 60 MG PO DAILY, TAB 02/13/19 Fluticasone Propionate* (Fluticasone Propionate* Nasal) 50 Mcg/[place] - 16 Gm [place].susp, 1 SPRAY NASAL DAILY, #1 BOTTLE TO EACH NOSTRIL 02/13/19 Enalapril Maleate* (Enalapril Maleate*) 10 Mg Tablet, 10 MG PO BID, TAB 02/13/19 Aspirin (Aspirin) 81 Mg Chew, 81 MG PO DAILY, TAB.CHEW 06/27/17 Clopidogrel Bisulfate (Clopidogrel) 75 Mg Tablet, 75 MG PO DAILY, #30 TAB 06/27/17 Medications Current Medications IV Flush (NS 3 ml) 3 ml PER PROTOCOL IV ; Start 02/13/19 at 06:30 Ondansetron HCl (Zofran Inj) 4 mg Q6H PRN IV NAUSEA/VOMITING; Start 02/13/19 at 06:30 Nitroglycerin (Nitroglycerin (Sl Tab) 0.4 Mg) 1 tab Q5M PRN SL .CHEST PAIN; Start 02/13/19 at 06:30 Acetaminophen (Tylenol Tab) 650 mg Q6H PRN PO .PAIN 1-3 OR TEMP; Start 02/13/19 at 06:30 Albuterol/ Ipratropium (Duoneb) 3 ml Q2H RESP THERAPY PRN HHN SHORTNESS OF BREATH; Start 02/13/19 at 06:30 Aspirin (Aspirin) 81 mg DAILY PO Last administered on 02/16/19 09:10; Admin Dose 81 MG; Start 02/13/19 at 09:00 Atorvastatin Calcium (Lipitor) 80 mg DAILY PO Last administered on 02/16/19 09:10; Admin Dose 80 MG; Start 02/13/19 at 09:00 Enalapril Maleate (Vasotec) 10 mg BID PO Last administered on 02/16/19 09:11; Admin Dose 10 MG; Start 02/13/19 at 09:00 Fluticasone Propionate (Flonase 0.05% Nasal) 1 spray DAILY NASAL Last administered on 02/16/19 09:13; Admin Dose 1 SPRAY; Start 02/13/19 at 09:00 Isosorbide Mononitrate (Imdur) 60 mg DAILY PO Last administered on 02/16/19 09:10; Admin Dose 60 MG; Start 02/13/19 at 09:00 Ranitidine HCl (Zantac) 150 mg BID PO Last administered on 02/16/19 09:10; Admin Dose 150 MG; Start 02/13/19 at 09:00 Sertraline HCl (Zoloft) 50 mg DAILY PO Last administered on 02/16/19 09:12; Admin Dose 50 MG; Start 02/13/19 at 09:00 Tolterodine Tartrate (Detrol La) 4 mg DAILY PO Last administered on 02/16/19 09:10; Admin Dose 4 MG; Start 02/13/19 at 09:00 Tramadol HCl (Ultram) 50 mg Q6H PRN PO PAIN Last administered on 02/15/19 17:29; Admin Dose 50 MG; Start 02/13/19 at 06:30 Zolpidem Tartrate (Ambien) 10 mg HS PRN PO INSOMNIA Last administered on 4/3/19at 22:03; Admin Dose 10 MG; Start 02/13/19 at 08:00 Metoprolol Succinate (Toprol Xl) 50 mg DAILY PO Last administered on 02/16/19at 09:12; Admin Dose 50 MG; Start 02/16/19 at 09:00 Clopidogrel Bisulfate (plaVIX) 300 mg ONCE ONCE PO ; Start 02/16/19 at 09:30; Stop 02/16/19 at 09:31; Status UNV Clopidogrel Bisulfate (plaVIX) 75 mg DAILY PO ; Start 02/17/19 at 09:00; Status UNV Assessment/Plan Hospital Course (Demo Recall) Acute coronary syndrome recurrent chest pain Coronary artery with history of multiple PCI including complex PCI of the right as well as circumflex artery. Review of the old angiogram showed that this artery of the left circumflex was complex and also heavily calcified and may require to have her intervention and possibly rollerblading done Hypertension Dyslipidemia Recommendations: Plavix was been added Continue with aspirin beta-melony nitroglycerin and statin Patient has been scheduled for left heart catheterization coronary angiogram percutaneous coronary intervention possible roto tomorrow afternoon. Risks benefits alternative procedure discussed with the patient in detail. Risks including but not limited to risk of infection vascular complication bleeding complication RI stroke arrhythmia renal failure etc. has been discussed with the patient. Patient consented to procedures. Outpatient follow-up will be with his regular emt i/85 Dr. Hoover Thank you for his referral. We will continue to follow along with you. TRACI ALVES MD [facility] TRACI ALVES MD Feb 16, 2019 09:17
[2019-02-16] MEDS ORDERED: CLOPIDOGREL 75 MG TAB PO ONE (09:30)
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
[2019-02-16] MEDS: traMADol 50 MG TAB PO PRN ×3 (12:34→23:32)
[2019-02-16] MEDS: ZOLPIDEM 5 MG TAB PO PRN (23:31)
[2019-02-17] VITALS (30 sets, daily range): BP systolic 94–133; BP diastolic 54–92; PULSE 58–82; RESP 15–22
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
[2019-02-17] MEDS: RANITIDINE 150 MG TAB PO SCH ×2 (08:44→21:56)
[2019-02-17] MEDS: TOLTERODINE (SR) 4 MG CAP PO SCH (08:44)
[2019-02-17] MEDS: ATORVASTATIN 80 MG TAB PO SCH (08:44)
[2019-02-17] MEDS: ASPIRIN 81 MG TAB PO SCH (08:44)
[2019-02-17] MEDS: FLUTICASONE 0.05% 16 GM NAS SPRAY NASAL SCH (08:44)
[2019-02-17] MEDS: SERTRALINE 50 MG TAB PO SCH (08:44)
[2019-02-17] MEDS: METOPROLOL (XL) 25 MG TAB PO SCH (08:45)
[2019-02-17] MEDS: ENALAPRIL 10 MG TAB PO SCH ×2 (08:45→22:45)
[2019-02-17] MEDS: ISOSORBIDE MONONITRATE(SR)60 MG TAB PO SCH (08:46)
[2019-02-17] MEDS: CLOPIDOGREL 75 MG TAB PO SCH (08:51)
[2019-02-17] MEDS: traMADol 50 MG TAB PO PRN ×2 (09:19→18:29)
--- NOTE | 2019-02-17 10:56 | CONS ---
Consult Date/Type/Reason Admit Date/Time Feb 15, 2019 at 15:11 Initial Consult Date 02/15/19 Type of Consultation: cv Requesting Provider: JOANA KELLY Date/Time of Note DATE: 02/17/19 TIME: 10:55 Subjective Interventional cardiology follow-up progress note Subjective: Discussed with the staff and multiple physicians. Patient on record including angiogram that was done 2017 by myself was personally reviewed. Patient with no chest pain or pressure now but has reported chest pain with heavy activity in the past few months has been getting exertional chest discomfort. Objective: General: no acute distress HEENT: NC/AT. pupils are equal. round. NECK: NO JVD. no stridor. CV: RRR. systolic murmur; no gallop or rubs. PULM: no wheezing or rhonchi. GI: SOFT, NT, ND, no rebound or guarding Extremity: trace B/L LE edema. no clubbing. neuro: awake and alert, OX3. Psych: calm and pleasant rectal: deferred : normal Objective Vitals Vital Signs Date Temp Pulse Resp B/P (MAP) Pulse Ox O2 O2 Flow FiO2 Time Delivery Rate 02/17/19 61 08:00 02/17/19 98.1 20 103/70 93 07:26 (81) 02/13/19 Room Air 19:18 Intake and Output 02/16/19 02/16/19 02/17/19 1515:00 23:00 07:00 IntakeIntake Total 850 ml OutputOutput Total 1200 ml BalanceBalance -350 ml Results/Medications Result Diagram: 02/17/19 0448 02/17/19 0448 Results 24 hrs Laboratory Tests Test 02/17/19 04:48 White Blood Count 5.6 Red Blood Count 5.49 Hemoglobin 14.4 Hematocrit 45.1 Mean Corpuscular Volume 82.1 Mean Corpuscular Hemoglobin 26.2 L Mean Corpuscular Hemoglobin Concent 31.9 L Red Cell Distribution Width 13.0 Platelet Count 184 Mean Platelet Volume 10.0 Immature Granulocytes % 0.500 H Neutrophils % 52.3 Lymphocytes % 31.7 Monocytes % 11.6 H Eosinophils % 3.4 Basophils % 0.5 Nucleated Red Blood Cells % 0.0 Immature Granulocytes # 0.030 Neutrophils # 2.9 Lymphocytes # 1.8 Monocytes # 0.7 Eosinophils # 0.2 Basophils # 0.0 Nucleated Red Blood Cells # 0.0 Prothrombin Time 13.5 Prothrombin Time Ratio 1.1 INR International Normalized Ratio 1.02 Sodium Level 137 Potassium Level 4.5 Chloride Level 104 Carbon Dioxide Level 27 Anion Gap 6 Blood Urea Nitrogen 16 Creatinine 0.91 Est Glomerular Filtrat Rate mL/min > 60 Glucose Level 88 Calcium Level 9.2 Creatine Kinase 54 Creatine Kinase Index 0.9 Creatinine Kinase MB (Mass) 0.46 Troponin I < 0.012 B-Type Natriuretic Peptide 47 Triglycerides Level 74 Cholesterol Level 73 L LDL Cholesterol, Calculated 30 HDL Cholesterol 28 L Cholesterol/HDL Ratio 2.6 Home Meds Active Scripts Metoprolol Succinate* (Toprol XL*) 25 Mg Tab.sr.24h, 25 MG PO DAILY, #30 TAB Prov:EULALIO RODRÍGUEZ [employer] 07/02/17 Atorvastatin* (Atorvastatin*) 80 Mg Tablet, 80 MG PO DAILY, #30 TAB Prov:EULALIO RODRÍGUEZ [employer] DIRECT[employer] 07/02/17 Reported Medications Tramadol HCl (Tramadol HCl) 50 Mg Tablet, 50 MG PO Q6H PRN for PAIN, #120 TAB 02/13/19 Tolterodine Tartrate* (Detrol LA*) 4 Mg Cap.sr.24h, 4 MG PO DAILY, #30 CAP 02/13/19 Sertraline Hcl* (Zoloft*) 50 Mg Tablet, 50 MG PO DAILY, #30 TAB 02/13/19 Ranitidine Hcl* (Zantac*) 150 Mg Tablet, 150 MG PO BID, #60 TAB 02/13/19 Isosorbide Mononitrate* (Isosorbide Mononitrate*) 60 Mg Tab.er.24h, 60 MG PO DAILY, TAB 02/13/19 Fluticasone Propionate* (Fluticasone Propionate* Nasal) 50 Mcg/[place] - 16 Gm [place].susp, 1 SPRAY NASAL DAILY, #1 BOTTLE TO EACH NOSTRIL 02/13/19 Enalapril Maleate* (Enalapril Maleate*) 10 Mg Tablet, 10 MG PO BID, TAB 02/13/19 Aspirin (Aspirin) 81 Mg Chew, 81 MG PO DAILY, TAB.CHEW 06/27/17 Clopidogrel Bisulfate (Clopidogrel) 75 Mg Tablet, 75 MG PO DAILY, #30 TAB 06/27/17 Medications Current Medications IV Flush (NS 3 ml) 3 ml PER PROTOCOL IV ; Start 4/1/19 at 06:30 Ondansetron HCl (Zofran Inj) 4 mg Q6H PRN IV NAUSEA/VOMITING; Start 02/13/19 at 06:30 Nitroglycerin (Nitroglycerin (Sl Tab) 0.4 Mg) 1 tab Q5M PRN SL .CHEST PAIN; Start 02/13/19 at 06:30 Acetaminophen (Tylenol Tab) 650 mg Q6H PRN PO .PAIN 1-3 OR TEMP; Start 02/13/19 at 06:30 Albuterol/ Ipratropium (Duoneb) 3 ml Q2H RESP THERAPY PRN HHN SHORTNESS OF BREATH; Start 02/13/19 at 06:30 Aspirin (Aspirin) 81 mg DAILY PO Last administered on 02/17/19 08:44; Admin Dose 81 MG; Start 02/13/19 at 09:00 Atorvastatin Calcium (Lipitor) 80 mg DAILY PO Last administered on 02/17/19 08:44; Admin Dose 80 MG; Start 02/13/19 at 09:00 Enalapril Maleate (Vasotec) 10 mg BID PO Last administered on 02/17/19 08:45; Admin Dose 10 MG; Start 02/13/19 at 09:00 Fluticasone Propionate (Flonase 0.05% Nasal) 1 spray DAILY NASAL Last administered on 02/17/19 08:44; Admin Dose 1 SPRAY; Start 02/13/19 at 09:00 Isosorbide Mononitrate (Imdur) 60 mg DAILY PO Last administered on 02/17/19 08:46; Admin Dose 60 MG; Start 02/13/19 at 09:00 Ranitidine HCl (Zantac) 150 mg BID PO Last administered on 02/17/19 08:44; Admin Dose 150 MG; Start 02/13/19 at 09:00 Sertraline HCl (Zoloft) 50 mg DAILY PO Last administered on 02/17/19 08:44; Admin Dose 50 MG; Start 02/13/19 at 09:00 Tolterodine Tartrate (Detrol La) 4 mg DAILY PO Last administered on 02/17/19 08:44; Admin Dose 4 MG; Start 02/13/19 at 09:00 Tramadol HCl (Ultram) 50 mg Q6H PRN PO PAIN Last administered on 02/17/19 09:19; Admin Dose 50 MG; Start 02/13/19 at 06:30 Zolpidem Tartrate (Ambien) 10 mg HS PRN PO INSOMNIA Last administered on 02/16/19at 23:31; Admin Dose 10 MG; Start 02/13/19 at 08:00 Metoprolol Succinate (Toprol Xl) 50 mg DAILY PO Last administered on 02/17/19 08:45; Admin Dose 50 MG; Start 02/16/19 at 09:00 Clopidogrel Bisulfate (plaVIX) 75 mg DAILY PO Last administered on 02/17/19 08:51; Admin Dose 75 MG; Start 02/17/19 at 09:00 Assessment/Plan Hospital Course (Demo Recall) Acute coronary syndrome recurrent chest pain Coronary artery with history of multiple PCI including complex PCI of the right as well as circumflex artery. Review of the old angiogram showed that this artery of the left circumflex was complex and also heavily calcified and may require to have her intervention and possibly rollerblading done Hypertension Dyslipidemia Recommendations: Plavix was been added Continue with aspirin beta-melony nitroglycerin and statin Patient has been scheduled for left heart catheterization coronary angiogram percutaneous coronary intervention possible roto today afternoon. Risks benefits alternative procedure discussed with the patient in detail. Risks including but not limited to risk of infection vascular complication bleeding complication [place] stroke arrhythmia renal failure etc. has been discussed with the patient. Patient consented to procedures. Outpatient follow-up will be with his regular order processing clerk Dr. Hoover Thank you for his referral. We will continue to follow along with you. TRACI ALVES MD [facility] TRACI ALVES MD Feb 17, 2019 10:56
[2019-02-17] MEDS ORDERED: LIDOCAINE 1% (MDV) 20 ML INJ ONE (14:46)
[2019-02-17] MEDS ORDERED: IODIXANOL LOCM 100 ML BTL ONE (14:46)
[2019-02-17] MEDS ORDERED: MIDAZOLAM 1 MG/ML 2 ML INJ ONE (14:53)
[2019-02-17] MEDS ORDERED: FENTAnyl 50 MCG/ML VIAL ONE (14:53)
[2019-02-17] MEDS ORDERED: SOD CHLORIDE 0.9% 1,000 ML ONE (16:39)
[2019-02-17] MEDS ORDERED: IOHEXOL 350MG/ML 50 ML BTL ONE (17:00)
[2019-02-17] MEDS ORDERED: HEPARIN 1000 UNITS/ML 10 ML INJ ONE (17:00)
[2019-02-17] MEDS ORDERED: IODIXANOL LOCM 50 ML BTL ONE (17:00)
[2019-02-17] MEDS ORDERED: CLOPIDOGREL 300 MG TAB ONE (17:30)
[2019-02-17] MEDS ORDERED: SOD CHLORIDE 0.9% 1,000 ML IV SCH (17:45)
[2019-02-17] MEDS ORDERED: ACETAMINOPHEN 325 MG TAB PO PRN (18:00)
[2019-02-17] MEDS ORDERED: morphine 2 MG INJ IV PRN (18:00)
--- NOTE | 2019-02-17 18:00 | OPR ---
Date/Time of Note Date/Time of Note DATE: 02/17/19 TIME: 17:50 Operative Report Procedure Date: Feb 17, 2019 Preoperative Diagnosis ACS. angina and abnormal stress test Postoperative Diagnosis same Operation/Procedure Performed PCI RCA PUBLIC RELATIONS ASSOCIATE Surgeon see signature line Television Presenter Yosi Anesthesia Type: moderate sedation Estimated Blood Loss: minimal Transfusion none Specimen none Grafts/Implants none Complications none Procedure Description Client Support Analyst: Traci Navarrete MD Indication: 63-year-old with history of coronary artery disease status post [place] and PCI of his right coronary artery as well as PCI of his left circumflex artery who was admitted with acute coronary syndrome unstable angina. Patient had also had abnormal stress as an outpatient and was awaiting cardiac catheterization. Procure performed: #1 left heart catheterization and selective right and left coronary angiogram #2 Right femoral angiogram and closure using a Perclose device 3. Very complex but successful PTCA and stenting of right coronary artery chronic total occlusion of the previous stent using a 3 x 24 mm Synergy drug- eluting stent, 3.5 x 38 mm Synergy drug-eluting stent, 3.5 x 16 mm Synergy drug- eluting stent 4. Moderate sedation for more than 120 minutes Findings: 1. Left main: is large and birfurcates to LAD & LCX. It has about 20% ostial stenosis. 2. LAD: Is long and has diffuse disease of up to probably about 60 % stenosis at proximal LAD, and mid LAD. Distal LAD has about 80% stenosis which does not appear to be significantly changed from previous study. There is [id number] collaterals noted 3. Left circumflex artery: is nondominant. it is completely occluded at the mid left circumflex artery. Obtuse marginal 1 has about 60% stenosis 4. RCA: is large dominant dominant. it has 70% proximal and 100% occluded at the mid LAD which was previously stented. After successful PTCA stenting of this lesion no significant residual stenosis left 5. LV EDP is about 4 no gradient across the aortic valve noted Procedure in detail: Written informed consent with obtained after risks benefits and alternatives discussed with the patient in detail. risks including but not limited to risk of infection vascular complications, bleeding complications, [place] stroke arrhythmia renal failure at even were discussed with the patient in detail. Patient was brought into the cardiac receiver/laborer and placed in supine position. Right and left groin area was prepped and draped in regular sterile fashion and then he was in anesthetized using 1% lidocaine. Right femoral artery was cannulated and using modified seldinger technique a 6 [place] sheath was placed in the femoral artery. Femoral angiogram was performed JL4 guiding catheter was advanced to engage the left main coronary artery angiographic view was obtained. JR4 catheter was advanced and engaged into the right coronary artery and angiographic view was obtained. Then a JL4 was advanced to engage the left ventricle hemodynamics as recorded by pullback aortic pressure was measured. At this time we decided to perform PCI of the right coronary artery. A Perclose was used to preclosed the device and a long 6 [place] sheath was withdrawn femoral artery A AL 0.75 guiding catheter was advanced to engage the right coronary artery. Multiple different wires were used to try to cross the lesion. With great difficulty I was able to advance a [place] pilot 50 wire into the distal LAD with the use of the courser catheter as support. However courser catheter could not cross into the distal LAD across the tight mid calcified lesion. Different balloons including 1.2, 1.5, 2.0 balloon was used none of them could cross into the lesion. I then used a guide liner for support and again was unsuccessful. Finally with the assistance of a microcatheter was advanced into the distal RCA. Then I used a BMW wire across the lesion. Was able to at this point use different balloons including 1.20, 1.5 balloon followed by 2.0 balloon and infl ated to RCA. Then I used a 2.5 noncompliant followed by a 3.0 noncompliant balloon which was placed across the RCA lesion and dilated. Then a 3.0 x 24 mm Synergy drug-eluting stent was placed across the distal RCA and deployed at 16 gigi. Then a 3.5 x 30 mm Synergy drug-eluting stent was placed across the mid RCA deployed at 16 gigi. Then I used a 3.5 x 16 mm Synergy drug-eluting stent which was placed across the proximal lesion and deployed at 16 Gigi. Finally a 3.5 x 12 mm noncompliant balloon was used and postdilated the stent and up to 20 Gigi. Final angiographic view was obtained which showed OSVALDO-3 flow no evidence of dissection and no significant residual stenosis at the site of the stent. perclose was successfully deployed. Patient tolerated the procedure well with no complication. Patient was transferred to the recovery room in stable condition. contrast used: Under 20 cc Visipaque Conclusions: Very complex but successful PTCA stenting of the RCA chronic total occlusion of the stent to no significant residual stenosis using a 3 drug- eluting stents. Recommendations: Aggressive medical therapy. aspirin indefinitely dual antiplatlet therapy with aspirin and Plavix ICU care overnight. TRACI NAVARRETE MD [facility] TRACI NAVARRETE MD Feb 17, 2019 18:00
[2019-02-17] MEDS: OXYCODONE/ACETAMINOPHEN (5/325) TAB PO PRN (18:55)
[2019-02-17] MEDS: ZOLPIDEM 5 MG TAB PO PRN (22:46)
[2019-02-18] VITALS (26 sets, daily range): BP systolic 85–127; BP diastolic 45–105; PULSE 63–86; RESP 13–30
[2019-02-18] MEDS: OXYCODONE/ACETAMINOPHEN (5/325) TAB PO PRN ×3 (01:27→23:33)
[2019-02-18] MEDS: ISOSORBIDE MONONITRATE(SR)60 MG TAB PO SCH (08:17)
[2019-02-18] MEDS: SERTRALINE 50 MG TAB PO SCH (08:18)
[2019-02-18] MEDS: CLOPIDOGREL 75 MG TAB PO SCH (08:18)
[2019-02-18] MEDS: RANITIDINE 150 MG TAB PO SCH ×2 (08:18→21:00)
[2019-02-18] MEDS: ASPIRIN 81 MG TAB PO SCH (08:18)
[2019-02-18] MEDS: METOPROLOL (XL) 25 MG TAB PO SCH (08:19)
[2019-02-18] MEDS: ATORVASTATIN 80 MG TAB PO SCH (08:19)
[2019-02-18] MEDS: traMADol 50 MG TAB PO PRN ×2 (08:24→15:45)
--- NOTE | 2019-02-18 08:42 | PN ---
Date/Time of Note Date/Time of Note DATE: 02/18/19 TIME: 08:38 Assessment/Plan VTE Prophylaxis Risk score (from [facility] [place]0 risk: 6 SCD applied (from [facility] [place]): Yes Pharmacological prophylaxis: heparin Lines/Catheters IV Catheter Type (from [facility]): Peripheral IV Assessment/Plan Problems: (1) Coronary artery disease Status: Chronic Comment: Is now status post angioplasty and stenting successfully of a complicated complex lesion. Continue careful observation. Probably can go out of the ICU today as per cardiology consult Qualifiers: Coronary Disease-Associated Artery/Lesion type: [place] artery [place] vs. transplanted heart: [place] heart Associated angina: with unstable angina Qualified Codes: I25.110 - Atherosclerotic heart disease of [place] coronary artery with unstable angina pectoris (2) S/P angioplasty with stent Onset Date: ~ 02/17/2019 Status: Acute Comment: Successful without apparent complication (3) Essential hypertension Status: Chronic Comment: On OLGA inhibitor beta-melony and nitrates (4) Grade I diastolic dysfunction Status: Chronic Comment: Control of blood pressure (5) Hyperlipidemia Status: Chronic Comment: Full dose statin therapy and stable Qualifiers: Hyperlipidemia type: pure hypercholesterolemia Qualified Codes: E78.00 - Pure hypercholesterolemia, unspecified (6) Rectal bleeding Status: Chronic Comment: Is reported but the last episode of this was sometime in the past. This will need to be worked up when he is stable from the acute cardiac intervention. Please note an option would be to order a [place] guard test in this gentleman. That would be an outpatient testing (7) Chronic depression Status: Chronic Comment: Stable on SSRI therapy (8) Insomnia Status: Chronic Comment: Noted and controlled Qualifiers: Insomnia type: primary Qualified Codes: F51.01 - Primary insomnia Result Diagram: 02/18/19 0423 02/18/19 0423 Results 24hrs Laboratory Tests Test 02/18/19 04:23 White Blood Count 6.5 Red Blood Count 5.47 Hemoglobin 14.3 Hematocrit 44.1 Mean Corpuscular Volume 80.6 L Mean Corpuscular Hemoglobin 26.1 L Mean Corpuscular Hemoglobin Concent 32.4 Red Cell Distribution Width 13.2 Platelet Count 196 Mean Platelet Volume 9.6 Immature Granulocytes % 0.500 H Neutrophils % 65.3 Lymphocytes % 21.5 Monocytes % 10.7 Eosinophils % 1.7 Basophils % 0.3 Nucleated Red Blood Cells % 0.0 Immature Granulocytes # 0.030 Neutrophils # 4.2 Lymphocytes # 1.4 Monocytes # 0.7 Eosinophils # 0.1 Basophils # 0.0 Nucleated Red Blood Cells # 0.0 Sodium Level 138 Potassium Level 4.5 Chloride Level 102 Carbon Dioxide Level 25 Anion Gap 11 Blood Urea Nitrogen 17 Creatinine 0.84 Est Glomerular Filtrat Rate mL/min > 60 Glucose Level 88 Calcium Level 9.0 Total Bilirubin 0.3 Direct Bilirubin 0.00 Indirect Bilirubin 0.3 Aspartate Amino Transf (AST/SGOT) 19 Alanine Aminotransferase (ALT/SGPT) 20 Alkaline Phosphatase 69 Creatine Kinase 68 Total Protein 6.3 Albumin 3.6 Globulin 2.70 Albumin/Globulin Ratio 1.33 Subjective 24 Hr Interval Summary Free Text/Dictation Patient reports he is having some pain at the site of the groin approach for the catheterization but otherwise has no cardiac symptoms, and no lower extremity symptoms Constitutional: no complaints Respiratory: no complaints Cardiovascular: no complaints Gastrointestinal: no complaints Genitourinary: no complaints Exam/Review of Systems Exam Vitals Vital Signs Date Temp Pulse Resp B/P (MAP) Pulse Ox O2 O2 Flow FiO2 Time Delivery Rate 02/18/19 86 21 115/81 96 Room Air 06:00 (92) 02/18/19 98.5 04:00 Intake and Output 02/17/19 02/17/19 02/18/19 1414:59 22:59 06:59 IntakeIntake Total 100 ml 1540 ml OutputOutput Total 200 ml 675 ml BalanceBalance 100 ml -200 ml 865 ml Exam Charming -[place] male watching sports center Constitutional: alert, oriented Neck: supple, non-tender Respiratory: clear to auscultation, normal air movement Cardiovascular: regular rate and rhythm, nl pulses Gastrointestinal: soft, nl liver, spleen, non-tender Genitourinary - Male: other (Groin wound without any signs of abnormalities) Extremities: normal pulses, other (Tinea pedis and onychomycosis) Results Results 24hrs Laboratory Tests Test 02/18/19 04:23 White Blood Count 6.5 Red Blood Count 5.47 Hemoglobin 14.3 Hematocrit 44.1 Mean Corpuscular Volume 80.6 L Mean Corpuscular Hemoglobin 26.1 L Mean Corpuscular Hemoglobin Concent 32.4 Red Cell Distribution Width 13.2 Platelet Count 196 Mean Platelet Volume 9.6 Immature Granulocytes % 0.500 H Neutrophils % 65.3 Lymphocytes % 21.5 Monocytes % 10.7 Eosinophils % 1.7 Basophils % 0.3 Nucleated Red Blood Cells % 0.0 Immature Granulocytes # 0.030 Neutrophils # 4.2 Lymphocytes # 1.4 Monocytes # 0.7 Eosinophils # 0.1 Basophils # 0.0 Nucleated Red Blood Cells # 0.0 Sodium Level 138 Potassium Level 4.5 Chloride Level 102 Carbon Dioxide Level 25 Anion Gap 11 Blood Urea Nitrogen 17 Creatinine 0.84 Est Glomerular Filtrat Rate mL/min > 60 Glucose Level 88 Calcium Level 9.0 Total Bilirubin 0.3 Direct Bilirubin 0.00 Indirect Bilirubin 0.3 Aspartate Amino Transf (AST/SGOT) 19 Alanine Aminotransferase (ALT/SGPT) 20 Alkaline Phosphatase 69 Creatine Kinase 68 Total Protein 6.3 Albumin 3.6 Globulin 2.70 Albumin/Globulin Ratio 1.33 Medications Medication Current Medications IV Flush (NS 3 ml) 3 ml PER PROTOCOL IV ; Start 02/13/19 at 06:30 Ondansetron HCl (Zofran Inj) 4 mg Q6H PRN IV NAUSEA/VOMITING; Start 02/13/19 at 06:30 Nitroglycerin (Nitroglycerin (Sl Tab) 0.4 Mg) 1 tab Q5M PRN SL .CHEST PAIN; Start 02/13/19 at 06:30 Acetaminophen (Tylenol Tab) 650 mg Q6H PRN PO .PAIN 1-3 OR TEMP; Start 02/13/19 at 06:30 Albuterol/ Ipratropium (Duoneb) 3 ml Q2H RESP THERAPY PRN HHN SHORTNESS OF BREATH; Start 02/13/19 at 06:30 Aspirin (Aspirin) 81 mg DAILY PO Last administered on 02/18/19 08:18; Admin Dose 81 MG; Start 02/13/19 at 09:00 Atorvastatin Calcium (Lipitor) 80 mg DAILY PO Last administered on 02/18/19 08:19; Admin Dose 80 MG; Start 02/13/19 at 09:00 Enalapril Maleate (Vasotec) 10 mg BID PO Last administered on 02/17/19at 22:45; Admin Dose 10 MG; Start 02/13/19 at 09:00 Fluticasone Propionate (Flonase 0.05% Nasal) 1 spray DAILY NASAL Last administered on 02/17/19 08:44; Admin Dose 1 SPRAY; Start 02/13/19 at 09:00 Isosorbide Mononitrate (Imdur) 60 mg DAILY PO Last administered on 02/18/19 08:17; Admin Dose 60 MG; Start 02/13/19 at 09:00 Ranitidine HCl (Zantac) 150 mg BID PO Last administered on 02/18/19 08:18; Admin Dose 150 MG; Start 02/13/19 at 09:00 Sertraline HCl (Zoloft) 50 mg DAILY PO Last administered on 02/18/19 08:18; Admin Dose 50 MG; Start 02/13/19 at 09:00 Tolterodine Tartrate (Detrol La) 4 mg DAILY PO Last administered on 02/17/19 08:44; Admin Dose 4 MG; Start 02/13/19 at 09:00 Tramadol HCl (Ultram) 50 mg Q6H PRN PO PAIN Last administered on 02/17/19 18:29; Admin Dose 50 MG; Start 02/13/19 at 06:30 Zolpidem Tartrate (Ambien) 10 mg HS PRN PO INSOMNIA Last administered on 02/17/19 22:46; Admin Dose 10 MG; Start 02/13/19 at 08:00 Metoprolol Succinate (Toprol Xl) 50 mg DAILY PO Last administered on 02/18/19 08:19; Admin Dose 50 MG; Start 02/16/19 at 09:00 Clopidogrel Bisulfate (plaVIX) 75 mg DAILY PO Last administered on 02/18/19 08:18; Admin Dose 75 MG; Start 02/17/19 at 09:00 Acetaminophen (Tylenol Tab) 650 mg Q4H PRN PO PAIN; Start 02/17/19 at 18:00 Oxycodone/ Acetaminophen (Percocet (5/ 325)) 1 tab Q4H PRN PO PAIN Last administered on 02/18/19 01:27; Admin Dose 1 TAB; Start 02/17/19 at 18:00 Morphine Sulfate (morphine) 1 mg Q1H PRN IV PAIN Last administered on 02/17/19 18:55; Admin Dose 1 MG; Start 02/17/19 at 18:00 CARMEN DONOVAN MD Feb 18, 2019 08:42
[2019-02-18] MEDS: FLUTICASONE 0.05% 16 GM NAS SPRAY NASAL SCH (10:10)
[2019-02-18] MEDS: TOLTERODINE (SR) 4 MG CAP PO SCH (10:11)
[2019-02-18] MEDS: TERBINAFINE 250 MG TAB PO SCH ×2 (10:11→22:23)
[2019-02-18] MEDS: ENALAPRIL 10 MG TAB PO SCH ×2 (10:13→22:23)
--- NOTE | 2019-02-18 10:42 | CONS ---
Assessment/Plan Assessment/Plan Assessment/Plan (Daily) Assessment CAD s/p RCA PCI Hypertension Dyslipidemia Plan: DAPT ok to dc when ok with pcp Consultation Date/Type/Reason Admit Date/Time Feb 15, 2019 at 15:11 Initial Consult Date 02/15/19 Type of Consult Cardiology Requesting Provider: JOANA KELLY Date/Time of Note DATE: 02/18/19 TIME: 10:40 24 HR Interval Summary Constitutional: no complaints Detailed Summary Respiratory: no complaints Cardiovascular: no complaints Gastrointestinal: no complaints Musculoskeletal: no complaints Skin: no complaints Neurologic: no complaints Endocrine: no complaints Exam/Review of Systems Vital Signs Vitals Vital Signs Date Temp Pulse Resp B/P (MAP) Pulse Ox O2 O2 Flow FiO2 Time Delivery Rate 02/18/19 75 15 95/59 (71) 92 09:30 02/18/19 Room Air 09:00 02/18/19 98.5 08:00 Intake and Output 02/17/19 02/17/19 02/18/19 1515:00 23:00 07:00 IntakeIntake Total 100 ml 100 ml 1440 ml OutputOutput Total 200 ml 675 ml BalanceBalance 100 ml -100 ml 765 ml Exam Constitutional: alert, oriented Head: normocephalic, atraumatic Neck: supple Respiratory: clear to auscultation Cardiovascular: regular rate and rhythm Gastrointestinal: soft Musculoskeletal: nl extremities to inspection Labs Result Diagram: 02/18/19 0423 02/18/19 0423 Results 24hrs Laboratory Tests Test 02/18/19 04:23 White Blood Count 6.5 Red Blood Count 5.47 Hemoglobin 14.3 Hematocrit 44.1 Mean Corpuscular Volume 80.6 L Mean Corpuscular Hemoglobin 26.1 L Mean Corpuscular Hemoglobin Concent 32.4 Red Cell Distribution Width 13.2 Platelet Count 196 Mean Platelet Volume 9.6 Immature Granulocytes % 0.500 H Neutrophils % 65.3 Lymphocytes % 21.5 Monocytes % 10.7 Eosinophils % 1.7 Basophils % 0.3 Nucleated Red Blood Cells % 0.0 Immature Granulocytes # 0.030 Neutrophils # 4.2 Lymphocytes # 1.4 Monocytes # 0.7 Eosinophils # 0.1 Basophils # 0.0 Nucleated Red Blood Cells # 0.0 Sodium Level 138 Potassium Level 4.5 Chloride Level 102 Carbon Dioxide Level 25 Anion Gap 11 Blood Urea Nitrogen 17 Creatinine 0.84 Est Glomerular Filtrat Rate mL/min > 60 Glucose Level 88 Calcium Level 9.0 Total Bilirubin 0.3 Direct Bilirubin 0.00 Indirect Bilirubin 0.3 Aspartate Amino Transf (AST/SGOT) 19 Alanine Aminotransferase (ALT/SGPT) 20 Alkaline Phosphatase 69 Creatine Kinase 68 Total Protein 6.3 Albumin 3.6 Globulin 2.70 Albumin/Globulin Ratio 1.33 Medications Medications Current Medications IV Flush (NS 3 ml) 3 ml PER PROTOCOL IV ; Start 02/13/19 at 06:30 Ondansetron HCl (Zofran Inj) 4 mg Q6H PRN IV NAUSEA/VOMITING; Start 02/13/19 at 06:30 Nitroglycerin (Nitroglycerin (Sl Tab) 0.4 Mg) 1 tab Q5M PRN SL .CHEST PAIN; Start 02/13/19 at 06:30 Acetaminophen (Tylenol Tab) 650 mg Q6H PRN PO .PAIN 1-3 OR TEMP; Start 02/13/19 at 06:30 Albuterol/ Ipratropium (Duoneb) 3 ml Q2H RESP THERAPY PRN HHN SHORTNESS OF BREATH; Start 02/13/19 at 06:30 Aspirin (Aspirin) 81 mg DAILY PO Last administered on 02/18/19 08:18; Admin Dose 81 MG; Start 02/13/19 at 09:00 Atorvastatin Calcium (Lipitor) 80 mg DAILY PO Last administered on 02/18/19 08:19; Admin Dose 80 MG; Start 02/13/19 at 09:00 Enalapril Maleate (Vasotec) 10 mg BID PO Last administered on 02/18/19at 10:13; Admin Dose 10 MG; Start 02/13/19 at 09:00 Fluticasone Propionate (Flonase 0.05% Nasal) 1 spray DAILY NASAL Last administered on 02/18/19at 10:10; Admin Dose 1 SPRAY; Start 02/13/19 at 09:00 Isosorbide Mononitrate (Imdur) 60 mg DAILY PO Last administered on 02/18/19 08:17; Admin Dose 60 MG; Start 02/13/19 at 09:00 Ranitidine HCl (Zantac) 150 mg BID PO Last administered on 02/18/19 08:18; Admin Dose 150 MG; Start 02/13/19 at 09:00 Sertraline HCl (Zoloft) 50 mg DAILY PO Last administered on 02/18/19 08:18; Admin Dose 50 MG; Start 02/13/19 at 09:00 Tolterodine Tartrate (Detrol La) 4 mg DAILY PO Last administered on 02/18/19 10:11; Admin Dose 4 MG; Start 02/13/19 at 09:00 Tramadol HCl (Ultram) 50 mg Q6H PRN PO PAIN Last administered on 02/18/19 08:24; Admin Dose 50 MG; Start 02/13/19 at 06:30 Zolpidem Tartrate (Ambien) 10 mg HS PRN PO INSOMNIA Last administered on 02/17/19 22:46; Admin Dose 10 MG; Start 02/13/19 at 08:00 Metoprolol Succinate (Toprol Xl) 50 mg DAILY PO Last administered on 02/18/19 08:19; Admin Dose 50 MG; Start 02/16/19 at 09:00 Clopidogrel Bisulfate (plaVIX) 75 mg DAILY PO Last administered on 02/18/19 08:18; Admin Dose 75 MG; Start 02/17/19 at 09:00 Acetaminophen (Tylenol Tab) 650 mg Q4H PRN PO PAIN; Start 02/17/19 at 18:00 Oxycodone/ Acetaminophen (Percocet (5/ 325)) 1 tab Q4H PRN PO PAIN Last administered on 02/18/19 01:27; Admin Dose 1 TAB; Start 02/17/19 at 18:00 Morphine Sulfate (morphine) 1 mg Q1H PRN IV PAIN Last administered on 02/17/19 18:55; Admin Dose 1 MG; Start 02/17/19 at 18:00 Terbinafine HCl (Lamisil) 250 mg BID PO Last administered on 02/18/19 10:11; Admin Dose 250 MG; Start 02/18/19 at 09:00; Stop 02/25/19 at 08:59 ANDREA HOLMAN MD Feb 18, 2019 10:41
[2019-02-18] MEDS: ZOLPIDEM 5 MG TAB PO PRN (22:29)
[2019-02-19] VITALS (8 sets, daily range): BP systolic 98–110; BP diastolic 60–75; PULSE 58–72; RESP 18
[2019-02-19] MEDS: ISOSORBIDE MONONITRATE(SR)60 MG TAB PO SCH (08:16)
[2019-02-19] MEDS: CLOPIDOGREL 75 MG TAB PO SCH (08:16)
[2019-02-19] MEDS: ATORVASTATIN 80 MG TAB PO SCH (08:16)
[2019-02-19] MEDS: RANITIDINE 150 MG TAB PO SCH (08:16)
[2019-02-19] MEDS: TERBINAFINE 250 MG TAB PO SCH (08:16)
[2019-02-19] MEDS: ENALAPRIL 10 MG TAB PO SCH (08:17)
[2019-02-19] MEDS: ASPIRIN 81 MG TAB PO SCH (08:17)
[2019-02-19] MEDS: METOPROLOL (XL) 25 MG TAB PO SCH (08:17)
[2019-02-19] MEDS: FLUTICASONE 0.05% 16 GM NAS SPRAY NASAL SCH (08:17)
[2019-02-19] MEDS: SERTRALINE 50 MG TAB PO SCH (09:00)
[2019-02-19] MEDS: TOLTERODINE (SR) 4 MG CAP PO SCH (09:00)
--- NOTE | 2019-02-19 10:56 | PDOCDIS ---
Discharge Instructions DIAGNOSIS Discharge Diagnosis Coronary syndrome; coronary artery disease; hyperlipidemia; essential hypertension; grade 1 diastolic dysfunction; history of rectal bleeding; dysthymia; gastroesophageal reflux disease; disorders of initiating and maintaining sleep CONDITION [id number] Patient Condition: [id number] Good HOME CARE INSTRUCTIONS: [id number] Diet Instructions: [id number] Modified Fat ACTIVITY: [id number] Activity Restrictions: [id number] Slowly Increase Activity FOLLOW UP/APPOINTMENTS Follow-up Plan Cardiology in 1 week; primary care physician in 2 weeks CARMEN DONOVAN MD Feb 19, 2019 10:56
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
[2019-02-19] MEDS ORDERED: METO-335 PO (10:58)
[2019-02-19] MEDS ORDERED: ISOS60TA PO (12:32)
== END 2019-02-19 12:49 | disposition home or self-care (01) | DRG 247 ==
LOC: INTOOBSV 05:21 → 6WM 05:21 → OBSVTOIN 02-15 15:11 → ICU 02-17 18:29 → TEL 02-18 17:35
PROVIDERS: ADMIT Internal Medicine; ATTEND Family Medicine
PROC: B211YZZ Fluoroscopy of Multiple Coronary Arteries using Other Contrast (ICD-10-PCS; 2019-02-17)
PROC: 027036Z Dilation of Coronary Artery, One Artery with Three Drug-eluting Intraluminal Devices, Percutaneous Approach (ICD-10-PCS; principal; 2019-02-17 14:00)
PROC: 4A023N7 Measurement of Cardiac Sampling and Pressure, Left Heart, Percutaneous Approach (ICD-10-PCS; 2019-02-17 14:00)
DX: I25.110 Atherosclerotic heart disease of native coronary artery with unstable angina pectoris (principal); I24.9 Acute ischemic heart disease, unspecified; I25.82 Chronic total occlusion of coronary artery; E78.5 Hyperlipidemia, unspecified; F41.9 Anxiety disorder, unspecified; G47.00 Insomnia, unspecified; I10 Essential (primary) hypertension; K21.9 Gastro-esophageal reflux disease without esophagitis; I25.2 Old myocardial infarction; Z95.5 Presence of coronary angioplasty implant and graft; Z79.02 Long term (current) use of antithrombotics/antiplatelets; Z79.82 Long term (current) use of aspirin
CPT/HCPCS: 80048; 80053; 80061; 82550; 82553; 83036; 83735; 83880; 84100; 84439; 84443; 84484; 85025; 85610; 87081; 92943; 93005; 93306; 93458; 99217; G0378; C1725; C1760; C1769; C1874; C1887; C1894; J1644; J2250; J2270; J3010; J7030; J7040; Q9967

== ENCOUNTER 2019-06-23 10:05 | Day surgery (SDC) | payer OTHER ==
[~2019-06-23] VITALS: Ht 185.4 cm; Wt 96.1 kg
[~2019-06-23 10:05] MED LIST changes: +ENAL10TA PO; +FLUT16SP17 NASAL; +ISOS60TA PO; +RANI150T35 PO; +SERT50TA PO; +TOLT4CAP PO; +TRAM50TA2 PO; +XANAX; +ZYRTEC
[2019-06-23 11:13] VITALS: Ht 185.4 cm; Wt 96.1 kg
--- NOTE | 2019-06-23 11:31 | PREAC ---
Date/Time of Note Date/Time of Note DATE: 06/23/19 TIME: 11:28 Anesthesia Eval and Record Evaluation Time Pre-Procedure Interview DATE: 06/23/19 TIME: 11:28 Age 63 Sex male NPO: 8 hrs Preoperative diagnosis Colon screening Planned procedure Colonoscopy Past Medical History Past Medical History: Includes Cardio: HTN, Dyslipidemia, [place], CAD, PTCA/Stent Pulm: COPD Musculoskeletal: Osteoarthritis GI: GERD Surgery & Anesthesia Issues No known issue Meds Anticoagulation: Yes Beta Alaina within 24 hr: Yes Active Scripts Isosorbide Mononitrate* (Isosorbide Mononitrate*) 60 Mg Tab.er.24h, 60 MG PO DAILY for 30 Days, #30 TAB Prov:CARMEN DONOVAN MD 02/19/19 Metoprolol Succinate* (Toprol XL*) 25 Mg Tab.sr.24h, 50 MG PO DAILY for 30 Days, #30 TAB 1 Refill Prov:CARMEN DONOVAN MD 02/19/19 Atorvastatin* (Atorvastatin*) 80 Mg Tablet, 80 MG PO DAILY, #30 TAB Prov:EULALIO RODRÍGUEZ NP 07/02/17 Reported Medications Tramadol HCl (Tramadol HCl) 50 Mg Tablet, 50 MG PO Q6H PRN for PAIN, #120 TAB 02/13/19 Tolterodine Tartrate* (Detrol LA*) 4 Mg Cap.sr.24h, 4 MG PO DAILY, #30 CAP 02/13/19 Sertraline Hcl* (Zoloft*) 50 Mg Tablet, 50 MG PO DAILY, #30 TAB 02/13/19 Ranitidine Hcl* (Zantac*) 150 Mg Tablet, 150 MG PO BID, #60 TAB 02/13/19 Isosorbide Mononitrate* (Isosorbide Mononitrate*) 60 Mg Tab.er.24h, 60 MG PO DAILY, TAB 02/13/19 Fluticasone Propionate* (Fluticasone Propionate* Nasal) 50 Mcg/Drasco - 16 Gm Drasco.susp, 1 SPRAY NASAL DAILY, #1 BOTTLE TO EACH NOSTRIL 02/13/19 Enalapril Maleate* (Enalapril Maleate*) 10 Mg Tablet, 10 MG PO BID, TAB 02/13/19 Aspirin (Aspirin) 81 Mg Chew, 81 MG PO DAILY, TAB.CHEW 06/27/17 Clopidogrel Bisulfate (Clopidogrel) 75 Mg Tablet, 75 MG PO DAILY, #30 TAB 06/27/17 Meds reviewed: Yes Allergies Coded Allergies: No Known Allergy (Unverified , 06/23/19) Allergies Reviewed: Yes Labs/Studies Labs Reviewed: Reviewed by anesthesiologist test: N/A Studies: ECG Pre-procedure Exam Last vitals BP:128/67, P:64, Spo2:100%, T:98,9 Airway: Adequate mouth opening, Adequate thyromental dist Mallampati: Mallampati III Teeth: Normal Lung: Normal Heart: Normal ASA Physical Status ASA physical status: 4 Emergency: None Planned Anesthetic General/MAC: MAC Planned Pain Management Parenteral pain med Pre-operative Attestations Prior to commencing anesthesia and surgery, the patient was re-evaluated, there was verification of: *The patient's identity *The results of appropriate recent lab work and preoperative vital signs *The above evaluation not changing prior to induction *Anesthetic plan, risk benefits, alternative and complications discussed with patient/family; questions answered; patient/family understands, accepts and wishes to proceed. AURORA MARKS MD Jun 23, 2019 11:31
[2019-06-23] MEDS ORDERED: LIDOCAINE 2% (SDV) 5 ML INJ ONE (11:33)
[2019-06-23] MEDS ORDERED: PROPOFOL 60 ML ONE (11:33)
[2019-06-23 11:35] VITALS: BP 119/81; PULSE 59; RESP 20
--- NOTE | 2019-06-23 12:14 | PAC ---
Date/Time of Note Date/Time of Note DATE: 06/23/19 TIME: 12:13 Post-Anesthesia Notes Post-Anesthesia Note Activity: WNL Respiratory function: WNL Cardiovascular function: WNL Mental status: Baseline Pain reasonably controlled: Yes Hydration appropriate: Yes Nausea/Vomiting absent: Yes Comments BP:112/67, P:78, Spo2:100%, T:98,9 AURORA MARKS MD Jun 23, 2019 12:14
[2019-06-23 12:30] VITALS: BP 128/87; PULSE 57; RESP 18
== END 2019-06-23 14:23 | disposition home or self-care (01) ==
LOC: GIL 10:05
PROVIDERS: ATTEND Internal Medicine Gastroenterology
DX: Z12.11 Encounter for screening for malignant neoplasm of colon (principal); K64.9 Unspecified hemorrhoids; D12.3 Benign neoplasm of transverse colon; I25.10 Atherosclerotic heart disease of native coronary artery without angina pectoris; I10 Essential (primary) hypertension
CPT/HCPCS: 45380; Z7610; 88305